=== PATIENT | female | born 1955 | race Caucasian/White ===

== ENCOUNTER 2024-02-09 23:36 | Inpatient (IN) | payer OTHER, SELFPAY ==
[2024-02-09 19:34] VITALS: BP 167/81
[2024-02-09 20:08] LABS: % Basophils 0.2 % (0-2); % Eosinophils 2.8 % (0-6); % Immature Granulocytes 0.7 % (0-0.5); % Lymphocytes 4.3 % (20.5-51.1); % Monocytes 5.4 % (1.7-9.3); % Neutrophils 86.6 % (42.2-75.2); Absolute Eosinophils 0.5 10^3/uL (0-0.7); Absolute Immature Granulocytes 0.1 10^3/uL (0-0.05); Absolute Lymphocytes 0.8 10^3/uL (1.2-3.4); Absolute Neutrophils 15.6 10^3/uL (1.4-6.5); Hematocrit 32.9 % (37.0-47.0); Hemoglobin 10.9 g/dL (12.0-16.0); Mean Corp Hgb Conc. 33.1 g/dL (33.0-37.0); Mean Corpuscular Volume 81.6 fL (81.0-99.0); Mean Platelet Volume 8.9 fL (7.4-10.4); Nucleated Red Blood Cells % 0 %; Platelet Count 261 10^3/uL (130-400); Red Blood Cell Count 4.03 10^6/uL (4.20-5.40); Red Cell Dist. Width 14.8 % (11.5-14.5); White Blood Cell Count 18.1 10^3/uL (4.8-10.8)
[2024-02-09 20:09] LABS: Urine Albumin Trace (Neg - Trace); Urine Bilirubin Negative (Negative); Urine Character Clear (Clear); Urine Color Yellow; Urine Glucose Negative (Negative); Urine Ketone Negative (Negative); Urine Leukocyte 2+ (Negative); Urine Nitrite Negative (Negative); Urine Occult Blood Negative (Negative); Urine Urobilinogen Negative (Neg - 1+)
[2024-02-09 20:17] LABS: Urine Bacteria Many (Negative); Urine Red Blood Cell 0-2 /HPF (0-2)
[2024-02-09 20:21] LABS: Lactic Acid 1.3 mmol/L (0.7-2.0)
[2024-02-09 20:27] LABS: ALT (SGPT) 15 U/L (0-35); AST (SGOT) 17 U/L (14-36); Albumin 4.4 g/dl (3.5-5.0); Alkaline Phosphatase 218 U/L (38-126); Blood Urea Nitrogen 32 mg/dl (7-17); COVID-19 Antigen Negative (Negative); Calcium 8.8 mg/dl (8.4-10.2); Carbon Dioxide 25 mmol/L (22-30); Chloride 95 mmol/L (98-107); Glucose 229 mg/dl (70-99); Potassium 4.2 mmol/L (3.5-5.1); Sodium 130 mmol/L (135-145); Total Bilirubin 0.4 mg/dl (0.2-1.3); Total Protein 6.9 g/dl (6.3-8.2); eGFR 41.49
--- NOTE | 2024-02-09 22:04 | ED.GENMED ---
History of Present Illness
General
Chief Complaint: Fever
Source: patient
Exam Limitations: none
Time Seen by Provider: 02/09/24 21:45
History of Present Illness
History of Present Illness:
This is a 68 year old female that comes in with c/o fever and chills. States that around 12 noon she started with nausea and chills. States that her temp was 102. States that she was also sick in [place] about a month ago and they were worried about
sepsis. States that her has dementia and she cares for him. States that she is nauseated. States that she is taking Mounjaro and was due to take her Shot today but held off as this also makes her nauseated. States that she has been
constipated form this. Denies any chest pain, SOB, abd pain, vomiting, diarrhea, headache, dizziness, urinary burning.
Past History
Past History
ED Past Medical History: Asthma (with allergies), HTN, NIDDM and Other (UTI, Splenic aneurysm that they just watch. )
ED Past Surgical History: Gynecological (Total Hysterectomy) and Tonsilectomy (and adenoids)
Social History
Tobacco: Non-smoker
Alcohol: None
Personal:
Living: with family
Review of Systems
Review of Systems
All Other Systems: ROS reviewed and negative except as documented in HPI and ROS
Constitutional: Reports fever and chills
EENT: Reports no symptoms
Respiratory: Reports no symptoms; Denies cough or trouble breathing
Cardiac: Reports no symptoms; Denies chest pain
ABD/GI: Reports nausea; Denies abdominal pain, vomiting or diarrhea
: Reports no symptoms; Denies dysuria, frequency or urgency
Musculoskeletal: Reports no symptoms
Skin: Reports no symptoms
Neurological: Reports no symptoms; Denies dizzy or headache
Psychiatric: Reports no symptoms
Phy Exam
General Physical Exam
General Presentation: no apparent distress
General age: appears stated age
General Skin: warm and dry
General Habitus: normal
General Mental: alert
General Hydration: appears well hydrated
ENT Exam
ENT Exam: TM's normal, pharynx normal and neck supple
Eye Exam
Eye Exam: EOMI
Cardiovascular Exam
Cardiovascular Exam: regular rate/rhythm, no edema, no murmur and normal peripheral pulses
Pulmonary Exam
Pulmonary Exam: lungs clear, no respiratory distress, no rales, chest non tender, no crackles, no rhonchi, no wheezing and no cough
Gastrointestinal Exam
Gastrointestinal Exam: normal bowel sounds, non tender, soft, no organomegaly, no pulsatile mass and non distended
Musculoskeletal Exam
Musculoskeletal Exam: full ROM and no edema
Skin Exam
Skin Exam: normal color, warm/dry, no rash and no petechia
Psychiatric Exam
Psychiatric Exam: normal mood/affect
Course
Orders/Labs/Results
Orders:
Orders
02/09/24 19:38
Electrocardiogram (*1) Urgent
Reason for Study: Other
Other Reason for Exam: Possible Sepsis
Cardiac Monitoring- Treatment ONCE
EKG- Treatment ONCE
IV Insert/Care/Rem.- Treatment PRN
CR Chest - 2 Views Urgent
Comment:
Reason For Exam: suspected infection
O2 Therapy [RESP] Urgent
Titrate/Wean O2 to maintain O2 sat greater than (%): 93
Special Instructions: TO MAINTAIN CONTINUOUS O2 SATS > OR = 93%
Pulse Ox/cont/shift [RESP] Urgent
Quantity: 1
Special Instructions: CONTINUOUS
02/09/24 19:57
COVID-19 Antigen Urgent
Source: Nasal Swab
Complete Blood Count/With Diff Urgent
Comprehensive Metabolic Panel Urgent
Lactic Acid Q4H
Comment: ON ICE, CANCEL 2ND ORDER IF FIRST LACTIC ACID LEVEL <2
Urinalysis Reflex To Culture Urgent
Date Specimen was Collected: 02/09/24
Time Specimen was Collected: 19:38
Urine Microscopic Reflex Cult Urgent
Blood Culture Q30M
MARIA GUADALUPE Source: Blood/Venous
Specimen Description:
Comment: FROM 2 SEPARATE SITES
Urine Culture Urgent
MARIA GUADALUPE Source: U
Specimen Description:
Date Specimen was Collected: 02/09/24
Time Specimen was Collected: 19:38
02/09/24 20:15
Blood Culture Q30M
MARIA GUADALUPE Source: Blood/Venous
Specimen Description:
Comment: FROM 2 SEPARATE SITES
02/09/24 21:47
Fosfomycin [Monurol] 3 gm PO ONCE ONE
02/09/24 21:56
0.9% Sodium Chloride 1000 ml [Nss] 1,000 ml IV BOLUS
Acetaminophen [Tylenol] 1,000 mg PO NOW STA
02/09/24 22:05
Ondansetron Injectable [Zofran] 4 mg IV NOW STA
02/09/24 22:40
Zosyn 3.375 grams IVPB NOW Piperacillin/Tazo 3.375 Gram [Zosyn] 3.375 gram in 50 ml IV NOW
02/09/24 23:45
Lactic Acid Q4H
Comment: ON ICE, CANCEL 2ND ORDER IF FIRST LACTIC ACID LEVEL <2
Abnormal Lab Results
02/09/24
19:57
WBC 18.1 H 10^3/uL
(4.8-10.8)
RBC 4.03 L 10^6/uL
(4.20-5.40)
Hgb 10.9 L g/dL
(12.0-16.0)
Hct 32.9 L %
(37.0-47.0)
RDW 14.8 H %
(11.5-14.5)
Abs Immat Gran (auto) 0.1 H 10^3/uL
(0-0.05)
Absolute Neuts (auto) 15.6 H 10^3/uL
(1.4-6.5)
Absolute Lymphs (auto) 0.8 L 10^3/uL
(1.2-3.4)
Absolute Monos (auto) 1.0 H 10^3/uL
(0.1-0.6)
Immature Gran % 0.7 H %
(0-0.5)
Neutrophils % 86.6 H %
(42.2-75.2)
Lymphocytes % 4.3 L %
(20.5-51.1)
Sodium 130 L mmol/L
(135-145)
Chloride 95 L mmol/L
(98-107)
BUN 32 H mg/dl
(7-17)
Creatinine 1.4 H mg/dL
(0.6-1.0)
Glucose 229 H mg/dl
(70-99)
Alkaline Phosphatase 218 H U/L
(38-126)
Leukocyte Esterase Rfl 2+ A
(Negative)
Urine WBC (Reflex) 11-15 A /HPF
(0-5)
Urine Bacteria (Reflex) Many A
(Negative)
02/09/24 19:57
02/09/24 19:57
Leukocytosis. H/H low. Sodium slightly low. Chloride low. Dehydration. acute renal insufficiency, Hyperglycemia, Alk phos elevation. Urine positive for infection. COVID negative, Lactic acid 1.3
Vital Signs
Initial and Last Documented VS:
Initial Vital Signs
Temp Pulse Resp BP Pulse Ox
100.7 F H 114 22 167/81 95
02/09/24 19:34 02/09/24 19:34 02/09/24 19:34 02/09/24 19:34 02/09/24 19:34
Last Documented Vital Signs
Temp Pulse Resp BP Pulse Ox
101.3 F H 114 22 136/56 91
02/09/24 22:35 02/09/24 19:34 02/09/24 19:34 02/09/24 22:32 02/09/24 22:32
MDM/Problems Addressed
Differential Diagnosis Includes:
UTI, COVID, PNA
MDM/Problems Addressed:
This is a 68 year old female that comes in with c/o fever and chills. State that this started today around 12 noon. States that she is very nauseated.
Will get labs. give IV fluids, medicate for nausea.
Back into see patient. Explained that with her WBC count, her being diabetic and her renal insufficiency it would be better if patient as admitted for her UTi. Patient is now in agreement. Hospitalist notified.
Chronic conditions affecting care:
History of UTI
Chronic conditions affecting care: DM
Acute Exacerbation and/or Progression of Chronic Illness:
UTI
*Radiology
Radiology exam reviewed: radiology read reviewed (Chest- No acute cardiopulmonary process)
*Pulse Oximetry
Patient hypoxic: no
*EKG
Interpreted by ED Provider?: NA
Rate: EKG- N/A
*Venipuncturist Interpretation
Rate: Venipuncturist- N/A
*Critical Care Note
Total Time (30-74mins, 75-104mins- exclusive of procedures): Not Applicable
ED Attending Note
-
Portions of this chart may have been created with voice recognition software.� Occasional wrong word or��sound alike� substitutions may have occurred due to the inherent limitations of voice recognition software.
Discharge Plan
Departure
Patient Disposition: Admit
Date of Disposition: 02/09/24
Time of Disposition: 22:43
Admit to: Med/Surg
Presentation/result/management discussed w/ accepting MD/DO: Hospitalist
Patient with high blood pressure during this ER visit?: Yes
Condition: Good
Covid-19: Negative COVID-19
Discharge Problem:
Fever and chills, Acute UTI (urinary tract infection)
Referrals:
Fly Leung PA-C [Family Provider] -
Interventions
Interventions:
ED- Neurological Assessment Last Done: 02/09/24 22:35
Discharge Date and Time
Print Language: KOREAN
[2024-02-09] MEDS: NSS 1000 IV (22:28)
[2024-02-09] MEDS: TYLENOL 1000 MG PO (22:29)
[2024-02-09] MEDS: ZOFRAN 4 MG IV (22:30)
[2024-02-09 22:32] VITALS: BP 136/56
[2024-02-09 23:00] VITALS: BP 139/58
--- NOTE | 2024-02-09 23:23 | HPS.HSE ---
Family Physician
-
Family Physician: Fly Leung
Chief Complaint
-
fever
History of Present Illness
68-year-old female past medical history of kidney stone 15 years ago, asthma, hypertension, diabetes, stable splenic artery aneurysm, presenting with fevers and chills and nausea starting today. She denies any chest pain, shortness of breath,
abdominal pain, vomiting, diarrhea, headache, dizziness or urinary symptoms, blood in the urine.
She has been having constipation recently for which she has been taking MiraLAX but has been having daily small bowel movements.
She denies smoking alcohol use.
Medical History
Past Medical History
Past Medical History: Reports Other ( kidney stone 15 years ago, asthma, hypertension, diabetes, stable splenic artery aneurysm)
Past Surgical History: Reports None
Social History
Tobacco: Non-smoker
Alcohol: None
Drug: None
Family History
Family History: Not pertinent
Allergies / Home Medications
Allergies reflects when Allergies were last updated in [employer].
Home Medications with original date entered in [employer]
Allergy/Medication List:
Allergies
Allergy/AdvReac Type Severity Reaction Status Date / Time
cefuroxime [From Ceftin] Allergy blisters Verified 02/09/24 19:34
Home Medications
albuterol sulfate 90 mcg/actuation aerosol inhaler 1 puff inhalation R Q4HPRN PRN sob/wheezing 02/09/24
ascorbic acid (vitamin C) 500 mg tablet (Vitamin C) 500 mg PO BID 02/09/24
atorvastatin 10 mg tablet 10 mg PO QPM 02/09/24
cetirizine 10 mg tablet (Zyrtec) 10 mg PO QPM 02/09/24
cranberry fruit concentrate 250 mg chewable tablet (Azo Cranberry) 250 mg PO DAILY 02/09/24
diltiazem HCl 120 mg capsule,extended release 24 hr 120 mg PO QPM 02/09/24
diltiazem HCl 120 mg capsule,extended release 24 hr 240 mg PO DAILY 02/09/24
glipizide 10 mg tablet 10 mg PO BID 02/09/24
hydrochlorothiazide 25 mg tablet 25 mg PO DAILY 02/09/24
insulin glargine 100 unit/mL (3 mL) subcutaneous pen (Lantus Solostar U-100 Insulin) 60 unit SC HS 02/09/24
lisinopril 40 mg tablet 40 mg PO DAILY 02/09/24
omeprazole 40 mg capsule,delayed release 40 mg PO QPM 02/09/24
sertraline 50 mg tablet 50 mg PO QPM 02/09/24
tirzepatide 5 mg/0.5 mL subcutaneous pen injector (Mounjaro) 5 mg SC 02/09/24
Review of Systems
-
History Source: Patient
A 12 point ROS was completed and negative except as noted: Yes
Constitutional: Reports See HPI
EENT: Reports No Symptoms
Respiratory: Reports No Symptoms
Cardiac: Reports No Symptoms
Abdomen/GI: Reports See HPI
: Reports No Symptoms
Musculoskeletal: Reports No Symptoms
Skin: Reports No Symptoms
Neurological: Reports No Symptoms
Endocrine: Reports No Symptoms
Hematologic/Lymphatic: Reports No Symptoms
Psych: Reports No Symptoms
Physical Exam
Vital Signs
Vital Signs
Temp Pulse Resp BP Pulse Ox
101.3 F H 114 22 136/56 91
02/09/24 22:35 02/09/24 19:34 02/09/24 19:34 02/09/24 22:32 02/09/24 22:32
Physical Exam
General: Well Developed, Well Nourished and No Apparent Distress
HEENT: NormoCephalic, Moist mucous membranes and Atraumatic
Respiratory: Clear
Cardiac: S1/S2 and Regular Rhythm; No Murmur or Rub
GI: Soft, Non Tender, Non Distended and Normal Bowel Sounds; No Organomegaly
Rectal: Deferred by Provider
Musculoskeletal: No Clubbing, No Cyanosis and No Edema
Skin: No Rash
Neuro: Nonfocal/grossly intact
Laboratory Results
-
02/09/24 19:57
02/09/24 19:57
Laboratory Results
Lactic Acid 1.3 mmol/L (0.7-2.0) 02/09/24 19:57
Total Bilirubin 0.4 mg/dl (0.2-1.3) 02/09/24 19:57
AST 17 U/L (14-36) 02/09/24 19:57
ALT 15 U/L (0-35) 02/09/24 19:57
Alkaline Phosphatase 218 U/L (38-126) H 02/09/24 19:57
Data Reviewed
-
Lab Data: Labs Reviewed by me
Old Records: Reviewed
Impression/Plan
-
IMPRESSION:
PLAN:
# Sepsis (fever, leukocytosis, tachycardia) secondary to UTI
-No abdominal pain or flank pain to suggest obstructive stone
-Urine, blood cultures
-Levaquin given cephalosporin allergy
-Chest x-ray negative
# Acute kidney injury
-IV fluids
-Hold lisinopril, hydrochlorothiazide
Asthma
-Continue inhalers
Essential hypertension
-Hold hydrochlorothiazide
-Continue diltiazem
Type 2 diabetes
-Hold glipizide
-Reduce Lantus from 60 to 30 units
-Insulin sliding scale
Splenic artery aneurysm
Anxiety/depression
-Continue sertraline
Full code
DVT prophylaxis�heparin
Regular diet
[2024-02-10] VITALS: BP 103/50
[2024-02-10] MEDS: ZOSYN 50 IV (00:06)
[2024-02-10 01:00] VITALS: BP 114/51
[2024-02-10 01:45] VITALS: BP 134/104
[2024-02-10] MEDS: NSS 1000 IV ×2 (01:57→12:42)
[2024-02-10 02:09] VITALS: BMI 33.8
[2024-02-10] MEDS: LEVAQUIN 100 IV (03:08)
[2024-02-10 07:03] LABS: % Basophils 0.2 % (0-2); % Eosinophils 0.4 % (0-6); % Lymphocytes 3.6 % (20.5-51.1); % Neutrophils 90.8 % (42.2-75.2); Absolute Eosinophils 0.1 10^3/uL (0-0.7); Absolute Immature Granulocytes 0.2 10^3/uL (0-0.05); Absolute Lymphocytes 0.6 10^3/uL (1.2-3.4); Absolute Monocytes 0.7 10^3/uL (0.1-0.6); Absolute Neutrophils 15.5 10^3/uL (1.4-6.5); Hematocrit 31.8 % (37.0-47.0); Hemoglobin 10.6 g/dL (12.0-16.0); Mean Corp Hgb Conc. 33.3 g/dL (33.0-37.0); Mean Corpuscular Hgb 27.3 pg (27.0-31.0); Mean Platelet Volume 9.2 fL (7.4-10.4); Nucleated Red Blood Cells % 0 %; Platelet Count 225 10^3/uL (130-400); Red Blood Cell Count 3.88 10^6/uL (4.20-5.40); White Blood Cell Count 17.1 10^3/uL (4.8-10.8)
[2024-02-10 07:32] LABS: ALT (SGPT) 16 U/L (0-35); AST (SGOT) 17 U/L (14-36); Albumin 3.9 g/dl (3.5-5.0); Alkaline Phosphatase 149 U/L (38-126); Blood Urea Nitrogen 27 mg/dl (7-17); Calcium 8.3 mg/dl (8.4-10.2); Carbon Dioxide 26 mmol/L (22-30); Chloride 98 mmol/L (98-107); Estimated Creatinine Clearance 49 ml/min; Glucose 158 mg/dl (70-99); Potassium 4.3 mmol/L (3.5-5.1); Sodium 132 mmol/L (135-145); Total Bilirubin 0.6 mg/dl (0.2-1.3); Total Protein 6.5 g/dl (6.3-8.2); eGFR 41.49
[2024-02-10 07:41] LABS: Glucose - Point of Care 189 mg/dl (70-99)
[2024-02-10 07:46] VITALS: BP 130/67
[2024-02-10 09:09] LABS: Hepatitis C Antibody Negative (Negative)
[2024-02-10] MEDS: ROCEPHIN 1000 MG IV (09:31)
[2024-02-10] MEDS: STERILE WATER FOR INJECTION 10 ML IV (09:31)
[2024-02-10] MEDS: TYLENOL 1000 MG PO ×2 (09:31→16:47)
[2024-02-10] MEDS: CARDIZEM CD 240 MG PO (09:31)
[2024-02-10] MEDS: VITAMIN C 500 MG PO ×2 (09:32→21:09)
[2024-02-10] MEDS: NOVOLOG FLEXPEN-LOW RESISTANCE 1 UNITS SC ×3 (09:32→17:35)
[2024-02-10] MEDS: HEPARIN 5000 UNITS SC ×2 (09:32→21:09)
--- NOTE | 2024-02-10 10:06 | W.PN.HOSP.TC ---
Addendum entered and electronically signed by Blanca Quevedo MD 02/10/24 11:43:
Addendum
US result showed hydronephrosis both side
Will do stat bladder scan and possible need for Bustamante
D/w Urologist library circulation assistant, Dr Blair, he recommended CT study, will do stat study
Will follow
End
Original Note:
Today's Communication/Plan
-
Stat Renal US
PRN Tylenol
Change to Rocephin IV
IVF
Repeat blood culture
IV Vancomycin
Assessment / Plan
Assessment / Plan
Physical Exam
General: Well Developed, Well Nourished and No Apparent Distress
HEENT: Normocephalic, Moist mucous membranes and Atraumatic
Respiratory: Clear
Cardiac: S1/S2 and Regular Rhythm; No Murmur or Rub
GI: Soft, Non Tender, Non Distended no flank tenderness on exam
Musculoskeletal: No Clubbing, No Cyanosis and No Edema
Skin: No Rash
Neuro: Nonfocal/grossly intact
Psych: No agitation
# Sepsis (fever, leukocytosis, tachycardia) secondary to UTI
-No abdominal pain or flank pain to suggest obstructive stone
- Will do stat renal US to rule out hydronephrosis
Change IV Abx to IV Rocephin
- f/w culture
- No cephalosporin allergy, she takes Keflex with no issues.
-Chest x-ray negative
# One bottle positive blood culture of gram positive cocci, possible contamination
will repeat blood culture
Add IV vancomycin for now
# Acute kidney injury
-IV fluids
-Hold lisinopril, hydrochlorothiazide
# Hyponatremia
Asthma
-Continue inhalers
Essential hypertension
-Hold hydrochlorothiazide
-Continue diltiazem
Type 2 diabetes
-Hold glipizide
-Reduce Lantus from 60 to 30 units
-Insulin sliding scale
Splenic artery aneurysm
Anxiety/depression
-Continue sertraline
Full code
DVT prophylaxis�heparin
Regular diet.
Total time spent to see the patient on the floor, examine the patient, review data and lab results, discuss treatment plan with patient, nursing staff around 59 minutes
Anticipated Discharge: > 48 hours
Subjective/Interval History
-
Date of Service: February 10, 2024
Has fever
No abd pain
Objective Data
-
Labs:
Laboratory Results
02/10/24
06:23
WBC 17.1 H
Hgb 10.6 L
Hct 31.8 L
Plt Count 225
Sodium 132 L
Potassium 4.3
Chloride 98
Carbon Dioxide 26
BUN 27 H
Creatinine 1.4 H
Glucose 158 H
Calcium 8.3 L
Total Bilirubin 0.6
AST 17
ALT 16
Alkaline Phosphatase 149 H
Vital Signs:
Vital Signs
Temp Pulse Resp BP Pulse Ox
102.8 F H 101 16 130/67 95
02/10/24 07:46 02/10/24 09:31 02/10/24 07:46 02/10/24 09:31 02/10/24 07:46
I&O
02/09/24 02/10/24 02/11/24
06:59 06:59 06:59
Intake Total 480 / 480
Balance 480 / 480
[2024-02-10 10:54] LABS: Glycohemoglobin (HgbA1c) 7.4 % (4.0-5.6)
[2024-02-10 12:38] LABS: Glucose - Point of Care 183 mg/dl (70-99)
[2024-02-10] MEDS: VANCOCIN 300 MG IV (12:41)
[2024-02-10] MEDS: VANCOCIN 300 ML IV (12:41)
--- NOTE | 2024-02-10 12:43 | PHA.VAN.IN ---
Assessment
- Assessment
Renal Function: Appears elevated from baseline
Maximum Temperature: 102.8 - 02/10/24 0746
Concomitant Antimicrobials: ceftriaxone
AUC Dosing Plan
- Empiric Dosing
Initial / Loading Dose: 1500 mg x 1 dose
Maintenance Regimen: dose by random level - PEÑA
Plan
- Plan
Monitoring: random level AM 02/11/24
Pharmacokinetics Vancomycin I
- -
Patient Age: 68
Patient Sex: Female
Vancomycin Day #: 1
Indication: Bacteremia
Requesting Provider: Emy
Height / Weight:
Height 5 ft 8 in
Actual Weight 100.698 kg
Pertinent Past Medical History: BMI ~34
- Vital Signs / Lab Results
Temp Pulse Resp BP Pulse Ox
98.4 F 101 16 130/67 95
02/10/24 11:16 02/10/24 09:31 02/10/24 07:46 02/10/24 09:31 02/10/24 07:46
Lab Results - Hematology
02/09/24 02/10/24
19:57 06:23
WBC 18.1 H 17.1 H
Lab Results - Chemistry
02/09/24 02/10/24
19:57 06:23
BUN 32 H 27 H
Creatinine 1.4 H 1.4 H
Estimated Creat Clear 49
Albumin 4.4 3.9
02/09/24 02/09/24
19:57 23:45
Lactic Acid 1.3 Cancelled
Lab Results - Urine
02/09/24
19:57
Urine Nitrite (Reflex) Negative
Leukocyte Esterase Rfl 2+ A
Urine WBC (Reflex) 11-15 A
Ur Squamous Epith Cells 11-15
Urine Bacteria (Reflex) Many A
Microbiology Results
02/09/24 19:57 Urine Culture - Final
Urine
02/09/24 19:57 Blood Culture - Preliminary
Blood/Venous Positive culture in progress
Gram Stain - Final
--- NOTE | 2024-02-10 13:57 | CM ---
Reviewed chart, met with patient to obtain information for assessment. Patient's daughter was at bedside. Patient was out of room for a procedure. Patient's daughter stated that patient lives with her spouse who has Alzheimer's. She takes care of
him and right now while she is in acute care, her son and daughter are taking turns supervising him. 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 Will email resources to [email or web address].
Patient's daughter described patient as independent with her ADLs, personal care, dressing and bathing. She does all of the household cook, cooking, cleaning and laundry. She drives and can get herself to her appointments and do all the shopping.
Patient has a Glucometer but no other DME.
She has not had VN services in the past.
She has not been to a SNF.
Patient has a prescription plan and uses, [facility] in [place] for all of her medication.
Her PCP is Fly JAMES.
Patient stated that she feels that she is at her baseline functionally and she is anxious to return home. She feels that she won't have any needs at time of discharge.
Plan: Case management will continue to follow and assist with discharge planning. Home when stable.
[2024-02-10 15:00] VITALS: BP 134/72
[2024-02-10] MEDS: DULCOLAX 10 MG PO (16:48)
[2024-02-10] MEDS: Pyridium 200 MG PO ×2 (16:48→23:13)
[2024-02-10] MEDS: LIPITOR 10 MG PO (17:20)
[2024-02-10] MEDS: ZYRTEC 10 MG PO (17:20)
[2024-02-10] MEDS: PROTONIX 40 MG PO (17:20)
[2024-02-10] MEDS: ZOLOFT 50 MG PO (17:20)
[2024-02-10] MEDS: CARDIZEM CD 120 MG PO (17:21)
[2024-02-10 17:37] LABS: Glucose - Point of Care 160 mg/dl (70-99)
--- NOTE | 2024-02-10 17:58 | W.PN.URO.CBU ---
Today's Communication / Plan
-
await am labs keep folet
Assessment / Plan
-
probable left pyelo no hydro p[ossible blood cx pos pssib;e contaminant agree with iv ans abd avf keep river for now but willremove prior to d/c
Diagnosis
-
Date of Service: February 10, 2024
-
Patient Diagnosis:sp left pyelo hods bladder to 500cc no stones no hydro byr d=creat 0.8 to 1.4
Post Op Day:
Subjective
-
left flank pain no colic
Objective
-
Vital Signs
Temp Pulse Resp BP Pulse Ox
98.6 F 88 16 134/72 95
02/10/24 15:00 02/10/24 17:21 02/10/24 15:00 02/10/24 17:21 02/10/24 15:00
Intake and Output
02/09/24 02/10/24 02/11/24
06:59 06:59 06:59
Intake Total 480 / 480 1620 / 1620
Output Total 1250 / 1250
Balance 480 / 480 370 / 370
Intake:
Oral fluids 480 / 480 1620 / 1620
Output:
Urine, Voided 1250 / 1250
Laboratory Results
02/10/24 06:23
02/10/24 06:23
Review of Systems
-
Constitutional: Fever
: Flank Pain
Physical Exam
-
General - well developed, well nourished, no acute distress
Chest - clear bilaterally
Abdomen - soft, non-tender, positive bowel sounds, no CVAT, no incisional pain or distention
Genitalia - normal
Rectal - normal
Skin - warm & dry with no rash
Neuro - AOx3, no motor deficits
Extremities - no clubbing, no cyanosis, no edema
Incision - clean, dry
Dressing - clean, dry, intact
Care Review
Data Reviewed
Discussed with: Hospitalist and Nursing
CT Scan: Image Pers Reviewed
[2024-02-10] MEDS: FLOMAX 0.400000000000000022 MG PO (21:09)
[2024-02-10] MEDS: LANTUS 0.299999999999999989 UNITS SC (21:11)
[2024-02-10 21:13] LABS: Glucose - Point of Care 185 mg/dl (70-99)
[2024-02-10 23:00] VITALS: BP 101/68
[2024-02-11] MEDS: NSS 1000 IV ×2 (04:18→17:21)
[2024-02-11 07:00] VITALS: BP 138/66
[2024-02-11 07:14] LABS: Vancomycin Random 7.4 ug/ml
[2024-02-11 07:35] LABS: Glucose - Point of Care 167 mg/dl (70-99)
[2024-02-11] MEDS: STERILE WATER FOR INJECTION 10 ML IV (07:57)
[2024-02-11] MEDS: HEPARIN 5000 UNITS SC ×2 (07:57→19:47)
[2024-02-11] MEDS: ROCEPHIN 1000 MG IV (07:57)
[2024-02-11] MEDS: NOVOLOG FLEXPEN-LOW RESISTANCE 1 UNITS SC ×2 (08:01→17:22)
[2024-02-11] MEDS: VITAMIN C 500 MG PO ×2 (08:03→19:47)
[2024-02-11] MEDS: CARDIZEM CD 240 MG PO (08:05)
[2024-02-11 09:42] LABS: Hematocrit 28.4 % (37.0-47.0); Hemoglobin 9.5 g/dL (12.0-16.0); Mean Corp Hgb Conc. 33.5 g/dL (33.0-37.0); Mean Corpuscular Volume 80.7 fL (81.0-99.0); Mean Platelet Volume 9.3 fL (7.4-10.4); Platelet Count 227 10^3/uL (130-400); Red Blood Cell Count 3.52 10^6/uL (4.20-5.40); Red Cell Dist. Width 15.1 % (11.5-14.5)
[2024-02-11 09:54] LABS: Blood Urea Nitrogen 15 mg/dl (7-17); Calcium 8.4 mg/dl (8.4-10.2); Carbon Dioxide 23 mmol/L (22-30); Chloride 102 mmol/L (98-107); Glucose 150 mg/dl (70-99); Sodium 134 mmol/L (135-145)
[2024-02-11 10:03] LABS: Estimated Creatinine Clearance 76 ml/min; eGFR > 60.00
--- NOTE | 2024-02-11 10:17 | PHA.VAN.FU ---
Vancomycin Assessment / Plan
- Assessment
Renal Function: SCR Decreasing (1.4-> 0.9)
WBC's are: Trending Down (WNL)
In the past 24 hrs, patient has been: Afebrile
Concomitant Antimicrobials: ceftriaxone
- Assessment - Therapeutic Drug Monitoring
Random Level: 7.4 - ~ 18 hours after initial 1500 mg loading dose
- Dosing Plan
Adjust Regimen to: vancomycin 1000 mg q12h - first dose now
- Monitoring Plan
No level(s) ordered at this time: consider levels after pt nears steady state
- Follow Up
Pharmacy will continue to follow.
Vancomycin Follow UP
- -
Patient Age: 68
Patient Sex: Female
Vancomycin Day #: 2
Indication: Bacteremia
Requesting Provider: Emy
Height / Weight:
Height 5 ft 8 in
Actual Weight 100.698 kg
Pertinent Past Medical History: BMI ~34
- Vital Signs / Lab Results
Temp Pulse Resp BP Pulse Ox
100.2 F 93 16 138/66 93
02/11/24 07:00 02/11/24 08:05 02/11/24 07:00 02/11/24 08:05 02/11/24 07:00
Lab Results - Hematology
02/09/24 02/10/24 02/11/24
19:57 06:23 08:26
WBC 18.1 H 17.1 H 9.0
Lab Results - Chemistry
02/09/24 02/10/24 02/11/24
19:57 06:23 08:26
BUN 32 H 27 H 15
Creatinine 1.4 H 1.4 H 0.9
Estimated Creat Clear 49 76
Albumin 4.4 3.9
02/09/24 02/09/24
19:57 23:45
Lactic Acid 1.3 Cancelled
Microbiology Results
02/10/24 06:23 Blood Culture - Preliminary
Blood/Venous No Growth in 24 hours- Final report to follow
02/09/24 19:57 Urine Culture - Final
Urine
02/09/24 19:57 Blood Culture - Preliminary
Blood/Venous Positive culture in progress
Gram Stain - Final
Therapeutic Drug Monitoring
Random Vancomycin 7.4 ug/ml 02/11/24 05:55
--- NOTE | 2024-02-11 10:30 | W.PN.HOSP.TC ---
Today's Communication/Plan
-
.
Assessment / Plan
Assessment / Plan
Physical Exam
General: Well Developed, Well Nourished and No Apparent Distress
HEENT: Normocephalic, Moist mucous membranes and Atraumatic
Respiratory: Clear
Cardiac: S1/S2 and Regular Rhythm; No Murmur or Rub
GI: Soft, Non Tender, Non Distended no flank tenderness on exam
Musculoskeletal: No Clubbing, No Cyanosis and No Edema
: Bustamante, no hematuria.
Skin: No Rash
Neuro: Nonfocal/grossly intact
Psych: No agitation
# Sepsis (fever, leukocytosis, tachycardia) secondary to UTI
-No abdominal pain or flank pain to suggest obstructive stone
- US and CT showed mild hydronephrosis both sides but no obstructive stone.
She was found to have urinary retention. Placed Bustamante and started on Flomax. Will do Voiding trial. Had dysuria, given Pyridium.
Changed IV Abx to IV Rocephin
- f/w culture
- No cephalosporin allergy, she takes Keflex with no issues.
-Chest x-ray negative
# One bottle positive blood culture of gram positive cocci, possible contamination
Repeat blood culture 02/09
Added IV vancomycin empirically.
# Acute kidney injury
- Resolved, post IV fluids
-Held lisinopril, hydrochlorothiazide, can resume
# Hyponatremia
Asthma
No wheezes.
-Continue inhalers
Essential hypertension
-Held hydrochlorothiazide and Lisinopril
-Continue diltiazem
Type 2 diabetes
-Held glipizide
-Reduce Lantus from 60 to 30 units
-Insulin sliding scale
Splenic artery aneurysm
Anxiety/depression
-Continue sertraline
Full code
DVT prophylaxis�heparin
Regular diet.
Total time spent to see the patient on the floor, examine the patient, review data and lab results, discuss treatment plan with patient, family, nursing staff around 59 minutes
Anticipated Discharge: Within 24 hours
Subjective/Interval History
-
Date of Service: February 11, 2024
She feels better
No chest pain or sob
No flank pain
No dysuria
Objective Data
-
Labs:
Laboratory Results
02/11/24
08:26
WBC 9.0
Hgb 9.5 L
Hct 28.4 L
Plt Count 227
Sodium 134 L
Potassium 4.0
Chloride 102
Carbon Dioxide 23
BUN 15
Creatinine 0.9
Glucose 150 H
Calcium 8.4
Vital Signs:
Vital Signs
Temp Pulse Resp BP Pulse Ox
100.2 F 93 16 138/66 93
02/11/24 07:00 02/11/24 08:05 02/11/24 07:00 02/11/24 08:05 02/11/24 07:00
I&O
02/10/24 02/11/24 02/12/24
06:59 06:59 06:59
Intake Total 480 / 480 2100 / 2100
Output Total 3025 / 3025
Balance 480 / 480 -925 / -925
--- NOTE | 2024-02-11 10:54 | W.PN.URO.CBU ---
Today's Communication / Plan
-
remove river expect no output for hours
Assessment / Plan
-
probable left pyelo no hydro p[ossible blood cx pos pssib;e contaminant agree with iv ans abd avf labs normalized abd follow up blood cxs neg plan t tranfer to po abs ad discharge per hospitalist river to come ot today will seek
follow upoffice 2- 4 weeks
Diagnosis
-
Date of Service: February 11, 2024
-
Patient Diagnosis:
Post Op Day:
Patient Diagnosis:sp left pyelo hods bladder to 500cc no stones no hydro byr d=creat 0.8 to 1.4 NOW CTREAT 0.9 WBC 9K AND FOLOW UP BLOOD CXS NEG C=DX LEFT PEYELONEPHTIS
Post Op Day:
Subjective
-
FEELS BETTER
Objective
-
Vital Signs
Temp Pulse Resp BP Pulse Ox
100.2 F 93 16 138/66 93
02/11/24 07:00 02/11/24 08:05 02/11/24 07:00 02/11/24 08:05 02/11/24 07:00
Intake and Output
02/10/24 02/11/24 02/12/24
06:59 06:59 06:59
Intake Total 480 / 480 2099 / 2099
Output Total 3025 / 3025
Balance 480 / 480 -925 / -925
Intake:
Oral fluids 480 / 480 2099 / 2099
Output:
Urine, River 177 / 1774
Urine, Voided 1250 / 1250
Laboratory Results
02/11/24 08:26
02/11/24 08:26
Review of Systems
-
: No Symptoms
Physical Exam
-
General - well developed, well nourished, no acute distress
Chest - clear bilaterally
Abdomen - soft, non-tender, positive bowel sounds, no CVAT, no incisional pain or distention
Genitalia - normal
Rectal - normal
Skin - warm & dry with no rash
Neuro - AOx3, no motor deficits
Extremities - no clubbing, no cyanosis, no edema
Incision - clean, dry
Dressing - clean, dry, intact
Care Review
Data Reviewed
Discussed with: Nursing
CT Scan: Image Pers Reviewed
[2024-02-11] MEDS: VANCOCIN 200 IV ×2 (11:01→19:46)
[2024-02-11 11:55] LABS: Glucose - Point of Care 240 mg/dl (70-99)
[2024-02-11] MEDS: NOVOLOG FLEXPEN-LOW RESISTANCE 2 UNITS SC (12:48)
[2024-02-11 15:07] VITALS: BP 139/62
[2024-02-11 17:02] LABS: Glucose - Point of Care 195 mg/dl (70-99)
[2024-02-11] MEDS: ZOLOFT 50 MG PO (17:21)
[2024-02-11] MEDS: PROTONIX 40 MG PO (17:21)
[2024-02-11] MEDS: CARDIZEM CD 120 MG PO (17:21)
[2024-02-11] MEDS: ZYRTEC 10 MG PO (17:21)
[2024-02-11] MEDS: LIPITOR 10 MG PO (17:21)
[2024-02-11 21:29] LABS: Glucose - Point of Care 261 mg/dl (70-99)
[2024-02-11] MEDS: FLOMAX 0.400000000000000022 MG PO (21:37)
[2024-02-11] MEDS: LANTUS 0.299999999999999989 UNITS SC (21:37)
[2024-02-11 22:58] VITALS: BP 152/74
[2024-02-11 23:46] LABS: Glucose - Point of Care 225 mg/dl (70-99)
[2024-02-12 04:33] LABS: Glucose - Point of Care 178 mg/dl (70-99)
[2024-02-12] MEDS: VANCOCIN 200 IV (06:16)
[2024-02-12 06:44] LABS: Hematocrit 27.2 % (37.0-47.0); Mean Corp Hgb Conc. 33.1 g/dL (33.0-37.0); Mean Corpuscular Hgb 27.2 pg (27.0-31.0); Mean Corpuscular Volume 82.2 fL (81.0-99.0); Mean Platelet Volume 9.3 fL (7.4-10.4); Platelet Count 222 10^3/uL (130-400); Red Blood Cell Count 3.31 10^6/uL (4.20-5.40); Red Cell Dist. Width 14.7 % (11.5-14.5)
[2024-02-12 07:00] VITALS: BP 139/65
[2024-02-12 07:12] LABS: Blood Urea Nitrogen 14 mg/dl (7-17); Calcium 8.2 mg/dl (8.4-10.2); Carbon Dioxide 22 mmol/L (22-30); Chloride 103 mmol/L (98-107); Estimated Creatinine Clearance 86 ml/min; Glucose 149 mg/dl (70-99); Potassium 3.9 mmol/L (3.5-5.1); eGFR > 60.00
[2024-02-12 07:20] LABS: Sodium 135 mmol/L (135-145)
[2024-02-12] MEDS: CARDIZEM CD 240 MG PO (07:30)
[2024-02-12] MEDS: ROCEPHIN 1000 MG IV (07:31)
[2024-02-12] MEDS: HEPARIN 5000 UNITS SC (07:31)
[2024-02-12] MEDS: VITAMIN C 500 MG PO (07:31)
[2024-02-12] MEDS: STERILE WATER FOR INJECTION 10 ML IV (07:32)
[2024-02-12 07:43] LABS: Glucose - Point of Care 198 mg/dl (70-99)
[2024-02-12] MEDS: NOVOLOG FLEXPEN-LOW RESISTANCE 1 UNITS SC (07:46)
--- NOTE | 2024-02-12 08:04 | W.PN.URO.CBU ---
Today's Communication / Plan
-
d/c when ok by hospitalist
Assessment / Plan
-
probable left pyelo no hydro p[ossible blood cx pos pssib;e contaminant agree with iv ans abd avf labs normalized abd follow up blood cxs neg plan t tranfer to po abs ad discharge per hospitalist river to come ot today will seek
follow upoffice 2- 4 weeks
Diagnosis
-
Date of Service: February 12, 2024
-
Patient Diagnosis:
Post Op Day:
Patient Diagnosis:
Post Op Day:
Patient Diagnosis:sp left pyelo hods bladder to 500cc no stones no hydro byr d=creat 0.8 to 1.4 NOW CTREAT 0.9 WBC 9K AND FOLOW UP BLOOD CXS NEG C=DX LEFT PEYELONEPHTIS
Post Op Day:
Subjective
-
asx no pain fevr voiding
Objective
-
Vital Signs
Temp Pulse Resp BP Pulse Ox
98.3 F 75 17 139/65 95
02/12/24 07:00 02/12/24 07:30 02/12/24 07:00 02/12/24 07:30 02/12/24 07:00
Intake and Output
02/11/24 02/12/24 02/13/24
06:59 06:59 06:59
Intake Total 2099
Output Total 3025 / 3025
Balance -925 / -925 1819
Intake:
Oral fluids 2099 1420 / 1420
IV piggybacks 400 / 400
Output:
Urine, River 1774
Urine, Voided 1250 / 1250
Other:
Number of approximated MODERATE 3
amounts of urine
Number of approximated LARGE 1
amounts of urine
Laboratory Results
02/12/24 05:46
02/12/24 05:46
Review of Systems
-
: No Symptoms
Physical Exam
-
General - well developed, well nourished, no acute distress
Chest - clear bilaterally
Abdomen - soft, non-tender, positive bowel sounds, no CVAT, no incisional pain or distention
Genitalia - normal
Rectal - normal
Skin - warm & dry with no rash
Neuro - AOx3, no motor deficits
Extremities - no clubbing, no cyanosis, no edema
Incision - clean, dry
Dressing - clean, dry, intact
Care Review
Data Reviewed
Discussed with: Hospitalist and Nursing
--- NOTE | 2024-02-12 08:35 | PHA.VAN.FU ---
Vancomycin Assessment / Plan
- Assessment
Renal Function: SCR Decreasing
WBC's are: Trending Down
In the past 24 hrs, patient has been: Afebrile
Concomitant Antimicrobials: ceftriaxone
- Dosing Plan
Continue: vancomycin 1000 mg q12h
predicted AUC 510; Trough 14; half life - 10.3 h
- Monitoring Plan
Peak Level: 02/11 2030 - after 4th dose
Trough Level: 02/12 530
- Follow Up
Pharmacy will continue to follow.
Vancomycin Follow UP
- -
Patient Age: 68
Patient Sex: Female
Vancomycin Day #: 3
Indication: Bacteremia
Requesting Provider: Emy
Height / Weight:
Height 5 ft 8 in
Actual Weight 100.698 kg
Pertinent Past Medical History: BMI ~34
- Vital Signs / Lab Results
Temp Pulse Resp BP Pulse Ox
98.3 F 75 17 139/65 95
02/12/24 07:00 02/12/24 07:30 02/12/24 07:00 02/12/24 07:30 02/12/24 07:00
Lab Results - Hematology
02/09/24 02/10/24 02/11/24
19:57 06:23 08:26
WBC 18.1 H 17.1 H 9.0
02/12/24
05:46
WBC 7.0
Lab Results - Chemistry
02/09/24 02/10/24 02/11/24
19:57 06:23 08:26
BUN 32 H 27 H 15
Creatinine 1.4 H 1.4 H 0.9
Estimated Creat Clear 49 76
Albumin 4.4 3.9
02/12/24
05:46
BUN 14
Creatinine 0.8
Estimated Creat Clear 86
Albumin
02/09/24 02/09/24
19:57 23:45
Lactic Acid 1.3 Cancelled
Microbiology Results
02/10/24 06:23 Blood Culture - Preliminary
Blood/Venous No Growth in 48 hours- Final report to follow
02/09/24 19:57 Blood Culture - Preliminary
Blood/Venous Streptococcus agalactiae
Additional testing on request
Gram Stain - Final
02/10/24 10:40 Blood Culture - Preliminary
Blood/Venous No Growth in 24 hours- Final report to follow
02/09/24 19:57 Urine Culture - Final
Urine
Therapeutic Drug Monitoring
Random Vancomycin 7.4 ug/ml 02/11/24 05:55
--- NOTE | 2024-02-12 10:31 | W.PN.HOSP.TC ---
Today's Communication/Plan
-
dc later this afternoon
Assessment / Plan
Assessment / Plan
Physical Exam
General: Well Developed, Well Nourished and No Apparent Distress
HEENT: Normocephalic, Moist mucous membranes and Atraumatic
Respiratory: Clear
Cardiac: S1/S2 and Regular Rhythm; No Murmur or Rub
GI: Soft, Non Tender, Non Distended no flank tenderness on exam
Musculoskeletal: No Clubbing, No Cyanosis and No Edema
: No Bustamante, no hematuria.
Skin: No Rash
Neuro: Nonfocal/grossly intact
Psych: No agitation
# Sepsis (fever, leukocytosis, tachycardia) secondary to UTI
-No abdominal pain or flank pain to suggest obstructive stone
- US and CT showed mild hydronephrosis both sides but no obstructive stone. CT showed no hydronephrosis.
She was found to have urinary retention. Placed Bustamante and started on Flomax. Will do Voiding trial. Had dysuria, given Pyridium.
Changed IV Abx to IV Rocephin
- d/w urologist Dr Blair, treat with ABx, follow in office.
-Chest x-ray negative
# Bacteremia
One bottle positive blood culture of gram positive cocci streptococcus agalactiae
Repeat blood culture 02/09, no growth
This could be related to urinary source or GI source. Clinically she is back to normal with no urinary symptoms or GI problems. CT showed no acute issues
Added IV vancomycin empirically. d/w ID with such findings,recommend to treat it as infection, will do oral amoxicillin for 7 days course.
# Acute kidney injury
- Resolved, post IV fluids
-Ok to resume home meds.
# Hyponatremia
#Asthma
No wheezes.
-Continue inhalers
#Essential hypertension
-Held hydrochlorothiazide and Lisinopril
-Continue diltiazem
#Type 2 diabetes
-resume glipizide
-Reduce home insulin, she is comfortable managing her blood glucose.
#Splenic artery aneurysm
#Anxiety/depression
- Mood is pleasant and cooperative. No report of suicidal or homicidal thoughts.
-Continue sertraline
Full code
DVT prophylaxis�heparin
Regular diet.
Total discharge time spent to see the patient on the floor, examine the patient, review data and lab results, discuss discharge plan with patient, urologist, family, nursing staff around 69 minutes
Anticipated Discharge: Today
Subjective/Interval History
-
Date of Service: February 12, 2024
She is doing well
no pain,
Objective Data
-
Labs:
Laboratory Results
02/12/24
05:46
WBC 7.0
Hgb 9.0 L
Hct 27.2 L
Plt Count 222
Sodium 135
Potassium 3.9
Chloride 103
Carbon Dioxide 22
BUN 14
Creatinine 0.8
Glucose 149 H
Calcium 8.2 L
Vital Signs:
Vital Signs
Temp Pulse Resp BP Pulse Ox
98.3 F 75 17 139/65 95
02/12/24 07:00 02/12/24 07:30 02/12/24 07:00 02/12/24 07:30 02/12/24 07:00
I&O
02/11/24 02/12/24 02/13/24
06:59 06:59 06:59
Intake Total 2099 / 2099
Output Total 3024 / 302
Balance -925 / -925 1819
[2024-02-12 11:41] LABS: Glucose - Point of Care 213 mg/dl (70-99)
--- NOTE | 2024-02-12 12:09 | W.DCSUMMARY ---
Discharge Summary
Discharge Data
Date of Admission: 02/09/24
Date of Discharge: 02/12/24
-
Pending Results: No
Hospital Course
68 years old female presented with fever and chills. Patient was having nausea which she related to the recent use of medication Mounjaro. Patient did not have abdominal pain. No respiratory symptoms. Patient was noted to have acute urinary
retention. Bustamante catheter was placed. She had ultrasound of the kidney that showed possible hydronephrosis. Scan of the abdomen and pelvis showed no hydronephrosis or hydroureter but 7 mm nonobstructing calculus in the anterior midportion of the
left kidney with 10 cm minimally complex cyst in the midportion and lower pole of the left kidney. Patient was evaluated by urologist. She was started on low-dose Flomax. Bustamante catheter was removed and she passed voiding trial. Blood culture
showed 1 bottle positive for Streptococcus agalactiae of unknown source. Scan of the abdomen and pelvis did not show acute inflammation. Repeat blood culture showed no growth. Urine culture did not show any growth. Chest radiography was
unremarkable. Patient was given empiric antibiotics. Patient was discharged on 7 days course of oral amoxicillin. She tolerated diet well. She remained hemodynamically stable and was discharged in a stable condition.
Discharge Plan
-
Patient Disposition: Home (Routine Discharge)
Discharge Diagnosis/Procedures: Fever
Acute urinary retention
One bottle of blood culture positive for streptococcus agalactiae. Unknown source.
You received intravenous antibiotics. Repeat blood culture is no growth.
You were seen by urologist and recommended OP follow up. You were started on Flomax.
Discuss with infectious disease consultants, recommended to treat the infection with oral antibiotic.
Diet: Diabetic, Carb Controlled
Referrals:
Danny Blair MD [Active] - (call dr blair [phone] for questions but make appt as follow up to [facility] for after february 26 )
Fly Leung PA-C [Family Provider] - in one to two weeks
Prescriptions:
New
tamsulosin 0.4 mg Capsule
0.4 mg PO HS Qty: 30 0RF
amoxicillin 500 mg capsule
500 mg PO Q8H Qty: 21 0RF
Continued
atorvastatin 10 mg tablet
10 mg PO QPM
glipizide 10 mg tablet
10 mg PO BID
omeprazole 40 mg capsule,delayed release(DR/EC)
40 mg PO QPM
diltiazem HCl 120 mg capsule,extended release 24hr
240 mg PO DAILY
hydrochlorothiazide 25 mg tablet
25 mg PO DAILY
albuterol sulfate 90 mcg/actuation HFA aerosol inhaler
1 puff INHALATION R Q4HPRN PRN (Reason: sob/wheezing)
lisinopril 40 mg tablet
40 mg PO DAILY
sertraline 50 mg tablet
50 mg PO QPM
insulin glargine [Lantus Solostar U-100 Insulin] 100 unit/mL (3 mL) insulin pen
60 unit SC HS
Mounjaro 5 mg/0.5 mL pen injector
5 mg SC TH
cetirizine [Zyrtec] 10 mg Tablet
10 mg PO QPM
ascorbic acid (vitamin C) [Vitamin C] 500 mg Tablet
500 mg PO BID
diltiazem HCl 120 mg capsule,extended release 24hr
120 mg PO QPM
Azo Cranberry 250 mg Tablet,Chewable
250 mg PO DAILY
Discharge Orders:
Discharge Patient (As Directed); Ordered 02/12/24
Ordered By: Blanca Quevedo
Discharge Date and Time
Print Language: ZAMBIAN
[2024-02-12] MEDS: NOVOLOG FLEXPEN-LOW RESISTANCE SC (12:31)
== END 2024-02-12 12:37 | disposition home or self-care (01) | DRG 872 ==
LOC: 3 WEST ACU 23:36
PROVIDERS: Emergency Medicine; ADMITTING PHYSICIAN Hospitalist; ATTENDING PHYSICIAN Internal Medicine; EMERGENCY PHYSICIAN Emergency Medicine; FAMILY PHYSICIAN Physician Assistant Medical; OTHER PHYSICIAN Specialist
DX: A41.9 Sepsis, unspecified organism (principal); N17.9 Acute kidney failure, unspecified; E87.1 Hypo-osmolality and hyponatremia; N12 Tubulo-interstitial nephritis, not specified as acute or chronic; I72.8 Aneurysm of other specified arteries; N20.0 Calculus of kidney; J45.909 Unspecified asthma, uncomplicated; I10 Essential (primary) hypertension; E11.9 Type 2 diabetes mellitus without complications; F32.A Depression, unspecified; F41.9 Anxiety disorder, unspecified; R33.9 Retention of urine, unspecified; Z79.84 Long term (current) use of oral hypoglycemic drugs; Z79.899 Other long term (current) drug therapy; Z88.1 Allergy status to other antibiotic agents
CPT/HCPCS: 71046; 74176; 76775; 80048; 80053; 80202; 81003; 81015; 82962; 83036; 83605; 85025; 85027; 86803; 87040; 87077; 87086; 87147; 87205; 87811; 93005; 96374; 99285

== ENCOUNTER → 2024-04-04 14:12 | Outpatient (REF) | payer OTHER, SELFPAY | LOC: HWRAD 14:12 | PROVIDERS: ATTENDING PHYSICIAN Physician Assistant; FAMILY PHYSICIAN Physician Assistant Medical | DX: E04.2 Nontoxic multinodular goiter (principal) | CPT/HCPCS: 76536 ==

== ENCOUNTER 2024-08-17 13:08 | Emergency (ER) | payer OTHER, SELFPAY ==
[2024-08-17 13:29] VITALS: BP 140/71
--- NOTE | 2024-08-17 13:31 | ED.GENMED ---
ED Provider Triage
<Redd Robledo PA-C - Last Filed: 08/17/24 13:33>
-
Patient seen by provider in Triage?: Seen in Triage
69 yo female presents for severe L flank pain beginning this AM. has improved since onset. Hx of kidney stones, not similar symptoms. No lower urinary tract voiding symptoms. No hematuria. No fevers
Looks well. Suspect ureteral stone, check UA, CT. Give toradol pre-emptively
History of Present Illness
<Redd Robledo PA-C - Last Filed: 08/17/24 13:33>
General
Chief Complaint: Flank Pain
Time Seen by Provider: 08/17/24 15:46
<Maynor Christie PA-C - Last Filed: 08/17/24 18:59>
General
Source: patient
History of Present Illness
History of Present Illness:
69-year-old female with past medical history of hypertension and diabetes presenting to the emergency department for evaluation of sudden onset left-sided flank/lower back pain that began a few hours prior to arrival to the emergency department
accompanied with some mild nausea. Patient describes the pain to be intense, nonradiating, similar to labor pain, drastically improved with the Toradol she received while in triage. States pain is fully resolved at this time as well as nausea.
Patient notes that just prior to the pain onset she did have a bowel movement and reports that the bowel movement was completely normal. She denies any melena or hematochezia, hematuria, urinary frequency/urgency/dysuria, fevers, chills, rigors or
any other concerns. Patient does note a history of a cyst to her left kidney as well as intrarenal stones diagnosed on previous imaging.
Past History
<Redd Robledo PA-C - Last Filed: 08/17/24 13:33>
Past History
ED Past Medical History: Asthma (with allergies), HTN, NIDDM and Other (UTI, Splenic aneurysm that they just watch. )
ED Past Surgical History: Gynecological (Total Hysterectomy) and Tonsilectomy (and adenoids)
Social History
Tobacco: Non-smoker
Alcohol: None
Personal:
Living: with family
<Maynor Christie PA-C - Last Filed: 08/17/24 18:59>
Social History
Drug: None
Review of Systems
<Maynor Christie PA-C - Last Filed: 08/17/24 18:59>
Review of Systems
All Other Systems: ROS reviewed and negative except as documented in HPI and ROS
Phy Exam
<Maynor Christie PA-C - Last Filed: 08/17/24 18:59>
Physical Exam
Physical Exam:
GENERAL: Alert , in no apparent distress, small emesis with an emesis bag from earlier however patient notes no longer feeling nauseous
EYE: clear conjunctiva b/l
HEAD: NCAT
ENT: o/p clr, mmm.
CARDIAC: Regular rate and rhythm .
LUNGS: Clear breath sounds bilaterally, no acute respiratory distress, no wheezes/rales/rhonchi
ABDOMEN: Soft, without focal tenderness, no r/g, no cvat
NEUROLOGICAL: Alert and oriented
SKIN: Warm and dry, skin intact.
MUSCULOSKELETAL: well perfused.
PSYCH: Normal and appropriate interaction.
Scores
<Maynor Christie PA-C - Last Filed: 08/17/24 18:59>
Heart Failure Risk
Heart Failure Risk Score: Not Applicable
Heart Score for Chest Pain Patients
STEMI patient?: Not applicable
Withdrawal Assessment of Alcohol
Withdrawal Assessment Completed?: Not applicable
Course
<Redd Robledo PA-C - Last Filed: 08/17/24 13:33>
Orders/Labs/Results
Orders:
Orders
08/17/24 13:29
Ketorolac [Toradol] 30 mg IM NOW STA
08/17/24 13:30
CT Abd/pel Without Iv Or Oral Urgent
Comment:
Reason For Exam: L flank pain
08/17/24 13:54
Urinalysis Reflex To Culture Urgent
Date Specimen was Collected: 08/17/24
Time Specimen was Collected: 13:52
Urine Microscopic Reflex Cult Urgent
08/17/24 17:17
Basic Metabolic Panel Urgent
Complete Blood Count/With Diff Urgent
Abnormal Lab Results
08/17/24 08/17/24
13:54 17:17
MCH 26.8 L pg
(27.0-31.0)
MCHC 31.7 L g/dL
(33.0-37.0)
Abs Immat Gran (auto) 0.1 H 10^3/uL
(0-0.05)
Absolute Neuts (auto) 7.3 H 10^3/uL
(1.4-6.5)
Immature Gran % 0.8 H %
(0-0.5)
Lymphocytes % 15.8 L %
(20.5-51.1)
BUN 33 H mg/dl
(7-17)
Creatinine 1.2 H mg/dL
(0.6-1.0)
Glucose 169 H mg/dl
(70-99)
Ur Occult Blood Reflex 2+ A
(Negative)
Urine RBC 80-90 A /HPF
(0-2)
Urine Bacteria (Reflex) Few A
(Negative)
08/17/24 17:17
08/17/24 17:17
Vital Signs
Initial and Last Documented VS:
Initial Vital Signs
Temp Pulse Resp BP Pulse Ox
98.2 F 71 18 140/71 99
08/17/24 13:29 08/17/24 13:29 08/17/24 13:29 08/17/24 13:29 08/17/24 13:29
Last Documented Vital Signs
Temp Pulse Resp BP Pulse Ox
98.2 F 73 18 166/93 98
08/17/24 13:29 08/17/24 16:20 08/17/24 16:20 08/17/24 16:20 08/17/24 16:20
<Maynor Christie PA-C - Last Filed: 08/17/24 18:59>
Orders/Labs/Results
Orders:
Orders
08/17/24 13:29
Ketorolac [Toradol] 30 mg IM NOW STA
08/17/24 13:30
CT Abd/pel Without Iv Or Oral Urgent
Comment:
Reason For Exam: L flank pain
08/17/24 13:54
Urinalysis Reflex To Culture Urgent
Date Specimen was Collected: 08/17/24
Time Specimen was Collected: 13:52
Urine Microscopic Reflex Cult Urgent
08/17/24 17:17
Basic Metabolic Panel Urgent
Complete Blood Count/With Diff Urgent
Abnormal Lab Results
08/17/24 08/17/24
13:54 17:17
MCH 26.8 L pg
(27.0-31.0)
MCHC 31.7 L g/dL
(33.0-37.0)
Abs Immat Gran (auto) 0.1 H 10^3/uL
(0-0.05)
Absolute Neuts (auto) 7.3 H 10^3/uL
(1.4-6.5)
Immature Gran % 0.8 H %
(0-0.5)
Lymphocytes % 15.8 L %
(20.5-51.1)
BUN 33 H mg/dl
(7-17)
Creatinine 1.2 H mg/dL
(0.6-1.0)
Glucose 169 H mg/dl
(70-99)
Ur Occult Blood Reflex 2+ A
(Negative)
Urine RBC 80-90 A /HPF
(0-2)
Urine Bacteria (Reflex) Few A
(Negative)
08/17/24 17:17
08/17/24 17:17
Vital Signs
Initial and Last Documented VS:
Initial Vital Signs
Temp Pulse Resp BP Pulse Ox
98.2 F 71 18 140/71 99
08/17/24 13:29 08/17/24 13:29 08/17/24 13:29 08/17/24 13:29 08/17/24 13:29
Last Documented Vital Signs
Temp Pulse Resp BP Pulse Ox
98.2 F 73 18 166/93 98
08/17/24 13:29 08/17/24 16:20 08/17/24 16:20 08/17/24 16:20 08/17/24 16:20
<Maynor Christie PA-C - Last Filed: 08/17/24 18:59>
MDM/Problems Addressed
Differential Diagnosis Includes:
Renal/ureteral colic, pyelonephritis/urinary tract infection, musculoskeletal etiology
MDM/Problems Addressed:
69-year-old female presenting to the ER for evaluation of sudden onset left-sided flank pain accompanied with some mild nausea, symptoms drastically improved following Toradol while in triage. Urinalysis was also obtained in triage which shows 2+
blood and 80-90 RBCs per on differential. Given history of known kidney stones combined with the sudden onset nature and microscopic hematuria I do suspect kidney stone/ureterolithiasis to be the most likely diagnosis. Patient does note slight
elevation of her creatinine on last lab work so we will recheck labs and CT imaging. Disposition pending.
Chronic conditions affecting care: DM
<Maynor Christie PA-C - Last Filed: 08/17/24 18:59>
*Radiology
Radiology exam reviewed: radiology read reviewed
*Pulse Oximetry
Patient hypoxic: no
*Critical Care Note
Total Time (30-74mins, 75-104mins- exclusive of procedures): Not Applicable
Data Reviewed
Review of Other/Old Records Reveals: Labs and Records
Source: patient and records
<Maynor Christie PA-C - Last Filed: 08/17/24 18:59>
Patient Management
Escalation/DeEscalation of care consider admission/obs:
Patient has a 5 mm ureteral stone. Other chronic findings noted. Reviewed patient's CT scan with her and provided her with copy of report. Labs show a creatinine of 1.2 which patient has been around in the past. She feels comfortable being
discharged home and will follow-up with her urologist. Prescription for Flomax, Percocet and Zofran sent to pharmacy. Aware of return precautions to the ER.
ED Attending Note
<Redd Robledo PA-C - Last Filed: 08/17/24 13:33>
-
Portions of this chart may have been created with voice recognition software.� Occasional wrong word or��sound alike� substitutions may have occurred due to the inherent limitations of voice recognition software.
Discharge Plan
Departure
Patient Disposition: Home (Routine Discharge)
Date of Disposition: 08/17/24
Time of Disposition: 17:53
Patient with high blood pressure during this ER visit?: Yes
Discharge Problem:
Ureterolithiasis, CKD (chronic kidney disease)
Instructions: Renal Colic (DC)
Prescriptions:
New
tamsulosin [Flomax] 0.4 mg capsule
0.4 mg PO DAILY Qty: 10 0RF
ondansetron 4 mg tablet,disintegrating
4 mg PO TIDPRN PRN (Reason: nausea/vomiting) Qty: 9 0RF
oxycodone-acetaminophen [Percocet] 5-325 mg tablet
1 tab PO Q6HPRN PRN (Reason: pain) Qty: 6 0RF
No Action
atorvastatin 10 mg tablet
10 mg PO QPM
glipizide 10 mg tablet
10 mg PO BID
omeprazole 40 mg capsule,delayed release(DR/EC)
40 mg PO QPM
diltiazem HCl 120 mg capsule,extended release 24hr
240 mg PO DAILY
hydrochlorothiazide 25 mg tablet
25 mg PO DAILY
albuterol sulfate 90 mcg/actuation HFA aerosol inhaler
1 puff INHALATION R Q4HPRN PRN (Reason: sob/wheezing)
lisinopril 40 mg tablet
40 mg PO DAILY
sertraline 50 mg tablet
50 mg PO QPM
insulin glargine [Lantus Solostar U-100 Insulin] 100 unit/mL (3 mL) insulin pen
60 unit SC HS
Mounjaro 5 mg/0.5 mL pen injector
5 mg SC TH
cetirizine [Zyrtec] 10 mg Tablet
10 mg PO QPM
ascorbic acid (vitamin C) [Vitamin C] 500 mg Tablet
500 mg PO BID
diltiazem HCl 120 mg capsule,extended release 24hr
120 mg PO QPM
Azo Cranberry 250 mg Tablet,Chewable
250 mg PO DAILY
tamsulosin 0.4 mg Capsule
0.4 mg PO HS Qty: 30 0RF
amoxicillin 500 mg capsule
500 mg PO Q8H Qty: 21 0RF
Referrals:
Silverio Manjarrez MD [Family Provider] -
Interventions
Interventions:
*Risk Screen - Suicide Last Done: 08/17/24 16:19
*General Assessment Last Done: 08/17/24 13:29
*Neglect/Abuse Screening Last Done: 08/17/24 16:19
*Nursing Disposition Last Done: 08/17/24 18:16
[facility] Assessment Last Done: 08/17/24 16:19
Discharge Date and Time
Discharge Date/Time: 08/17/24 18:16
Print Language: SAMMARINESE
[2024-08-17] MEDS: TORADOL 30 MG IM (13:36)
[2024-08-17 14:13] LABS: Urine Albumin Trace (Neg - Trace); Urine Bilirubin Negative (Negative); Urine Character Clear (Clear); Urine Color Yellow; Urine Glucose Negative (Negative); Urine Ketone Negative (Negative); Urine Leukocyte Negative (Negative); Urine Nitrite Negative (Negative); Urine Occult Blood 2+ (Negative); Urine Urobilinogen Negative (Neg - 1+)
[2024-08-17 14:30] LABS: Urine Squamous Cell >30 /LPF (Few)
[2024-08-17 14:32] LABS: Urine Red Blood Cell 80-90 /HPF (0-2); Urine White Cell 0-2 /HPF (0-5)
[2024-08-17 14:33] LABS: Urine Bacteria Few (Negative)
[2024-08-17 16:20] VITALS: BP 166/93
[2024-08-17 17:32] LABS: % Basophils 0.6 % (0-2); % Eosinophils 3.3 % (0-6); % Immature Granulocytes 0.8 % (0-0.5); % Lymphocytes 15.8 % (20.5-51.1); % Neutrophils 74.5 % (42.2-75.2); Absolute Basophils 0.1 10^3/uL (0-0.2); Absolute Eosinophils 0.3 10^3/uL (0-0.7); Absolute Immature Granulocytes 0.1 10^3/uL (0-0.05); Absolute Lymphocytes 1.5 10^3/uL (1.2-3.4); Absolute Monocytes 0.5 10^3/uL (0.1-0.6); Absolute Neutrophils 7.3 10^3/uL (1.4-6.5); Hematocrit 37.9 % (37.0-47.0); Mean Corp Hgb Conc. 31.7 g/dL (33.0-37.0); Mean Corpuscular Hgb 26.8 pg (27.0-31.0); Mean Corpuscular Volume 84.8 fL (81.0-99.0); Mean Platelet Volume 9.4 fL (7.4-10.4); Nucleated Red Blood Cells % 0 %; Platelet Count 259 10^3/uL (130-400); Red Blood Cell Count 4.47 10^6/uL (4.20-5.40); Red Cell Dist. Width 13.9 % (11.5-14.5); White Blood Cell Count 9.8 10^3/uL (4.8-10.8)
[2024-08-17 17:52] LABS: Blood Urea Nitrogen 33 mg/dl (7-17); Calcium 9.3 mg/dl (8.4-10.2); Carbon Dioxide 27 mmol/L (22-30); Chloride 98 mmol/L (98-107); Glucose 169 mg/dl (70-99); Potassium 5.1 mmol/L (3.5-5.1); Sodium 135 mmol/L (135-145); eGFR 49.61
== END 2024-08-17 18:16 | disposition home or self-care (01) ==
LOC: EMR 13:08
PROVIDERS: Physician Assistant; Physician Assistant Medical; EMERGENCY PHYSICIAN Emergency Medicine; FAMILY PHYSICIAN Family Medicine
DX: N13.2 Hydronephrosis with renal and ureteral calculous obstruction (principal); E11.22 Type 2 diabetes mellitus with diabetic chronic kidney disease; I12.9 Hypertensive chronic kidney disease with stage 1 through stage 4 chronic kidney disease, or unspecified chronic kidney disease; N18.9 Chronic kidney disease, unspecified; J45.909 Unspecified asthma, uncomplicated
CPT/HCPCS: 96372; 99284; 74176; 80048; 81003; 81015; 85025

== ENCOUNTER 2024-08-19 15:41 | Inpatient (IN) | payer OTHER, SELFPAY ==
[2024-08-19] VITALS (8 sets, daily range): BP systolic 113–171; BP diastolic 63–89; BMI 33.7
[2024-08-19] MEDS: ZOFRAN 4 MG IV (06:23)
[2024-08-19] MEDS: NSS 1000 IV ×2 (06:32→20:15)
[2024-08-19] MEDS: DILAUDID 1 MG IV (06:33)
[2024-08-19 06:34] LABS: % Basophils 0.4 % (0-2); % Eosinophils 0.4 % (0-6); % Immature Granulocytes 0.8 % (0-0.5); % Lymphocytes 8.7 % (20.5-51.1); % Neutrophils 85.7 % (42.2-75.2); Absolute Immature Granulocytes 0.1 10^3/uL (0-0.05); Absolute Lymphocytes 0.9 10^3/uL (1.2-3.4); Absolute Monocytes 0.4 10^3/uL (0.1-0.6); Absolute Neutrophils 9.3 10^3/uL (1.4-6.5); Hematocrit 34.1 % (37.0-47.0); Hemoglobin 11.2 g/dL (12.0-16.0); Mean Corp Hgb Conc. 32.8 g/dL (33.0-37.0); Mean Corpuscular Hgb 27.3 pg (27.0-31.0); Nucleated Red Blood Cells % 0 %; Platelet Count 241 10^3/uL (130-400); Red Blood Cell Count 4.11 10^6/uL (4.20-5.40); Red Cell Dist. Width 13.6 % (11.5-14.5); White Blood Cell Count 10.9 10^3/uL (4.8-10.8)
[2024-08-19 06:46] LABS: ALT (SGPT) 17 U/L (0-35); AST (SGOT) 19 U/L (14-36); Albumin 4.6 g/dl (3.5-5.0); Alkaline Phosphatase 145 U/L (38-126); Blood Urea Nitrogen 36 mg/dl (7-17); Carbon Dioxide 28 mmol/L (22-30); Chloride 92 mmol/L (98-107); Estimated Creatinine Clearance 52 ml/min; Glucose 189 mg/dl (70-99); Potassium 4.8 mmol/L (3.5-5.1); Sodium 131 mmol/L (135-145); Total Bilirubin 0.6 mg/dl (0.2-1.3); Total Protein 7.3 g/dl (6.3-8.2); eGFR 45.07
--- NOTE | 2024-08-19 06:49 | ED.GENMED ---
History of Present Illness
General
Chief Complaint: Abdominal Symptoms
Source: patient and family
Exam Limitations: none
Time Seen by Provider: 08/19/24 06:06
History of Present Illness
History of Present Illness:
69-year-old female who was here 2 days ago and diagnosed with a kidney stone. She states that yesterday was doing okay and trying to eat. She states she had little bit of cramping earlier in the day but expected it. In the evening the pain became
unbearable around 10:00 P. Daughter states that her blood sugar has been a little bit high. Patient states she has not been eating normally. She tried taking her pain medicine then she vomited. She did take her Flomax on Tuesday. No fevers.
Presents with nausea and severe left lower back pain. Pain has not changed in location.
Past History
Past History
ED Past Medical History: Asthma (with allergies), HTN, NIDDM and Other (UTI, Splenic aneurysm that they just watch. )
ED Past Surgical History: Gynecological (Total Hysterectomy) and Tonsilectomy (and adenoids)
Social History
Tobacco: Non-smoker
Alcohol: None
Drug: None
Personal:
Living: with family
Phy Exam
Physical Exam
Physical Exam:
CONSTITUTIONAL Patient alert and oriented to person, place and time. Well-appearing. Vital signs reviewed.
HEAD atraumatic, normocephalic.
EYES eyelids normal to inspection, Extraocular muscles intact, Conjunctiva normal, Sclera normal.
NECK normal range of motion, Trachea midline, no jugular venous distention.
RESPIRATORY CHEST No respiratory distress noted, Chest expansion equal
ABDOMEN abdomen nontender, Bowel sounds normal. No distention.
BACK normal inspection, no obvious deformities, no CVA tenderness
UPPER EXTREMITY range of motion normal, Motor strength normal, no cyanosis, no edema.
LOWER EXTREMITY range of motion normal, Motor strength normal, no cyanosis, no edema.
NEURO Speech normal, No focal motor deficits, Sarah coma scale 15, Memory normal, Cranial Nerves intact to screening exam.
SKIN skin warm, dry, and normal in color.
Course
Orders/Labs/Results
Orders:
Orders
08/19/24 06:20
Ondansetron Injectable [Zofran] 4 mg .ROUTE .STK-MED ONE
08/19/24 06:22
Complete Blood Count/With Diff Urgent
Comprehensive Metabolic Panel Urgent
08/19/24 06:23
Ondansetron Injectable [Zofran] 4 mg IV NOW STA
08/19/24 06:29
0.9% Sodium Chloride 1000 ml [Nss] 1,000 ml IV BOLUS
HYDROmorphone [Dilaudid] 1 mg IV NOW STA
08/19/24 07:17
Ketorolac [Toradol] 15 mg IV NOW STA
08/19/24 08:38
Urinalysis Reflex To Culture Urgent
Date Specimen was Collected: 08/19/24
Time Specimen was Collected: 08:36
Urine Microscopic Reflex Cult Urgent
Abnormal Lab Results
08/19/24 08/19/24
06:22 08:38
WBC 10.9 H 10^3/uL
(4.8-10.8)
RBC 4.11 L 10^6/uL
(4.20-5.40)
Hgb 11.2 L g/dL
(12.0-16.0)
Hct 34.1 L %
(37.0-47.0)
MCHC 32.8 L g/dL
(33.0-37.0)
Abs Immat Gran (auto) 0.1 H 10^3/uL
(0-0.05)
Absolute Neuts (auto) 9.3 H 10^3/uL
(1.4-6.5)
Absolute Lymphs (auto) 0.9 L 10^3/uL
(1.2-3.4)
Immature Gran % 0.8 H %
(0-0.5)
Neutrophils % 85.7 H %
(42.2-75.2)
Lymphocytes % 8.7 L %
(20.5-51.1)
Sodium 131 L mmol/L
(135-145)
Chloride 92 L mmol/L
(98-107)
BUN 36 H mg/dl
(7-17)
Creatinine 1.3 H mg/dL
(0.6-1.0)
Glucose 189 H mg/dl
(70-99)
Alkaline Phosphatase 145 H U/L
(38-126)
Ur Occult Blood Reflex 4+ A
(Negative)
Urine RBC 40-50 A /HPF
(0-2)
Urine Bacteria (Reflex) Few A
(Negative)
08/19/24 06:22
08/19/24 06:22
Vital Signs
Initial and Last Documented VS:
Initial Vital Signs
Temp Pulse Resp BP Pulse Ox
97.5 F 68 18 171/89 96
08/19/24 05:42 08/19/24 05:42 08/19/24 05:42 08/19/24 05:42 08/19/24 05:42
Last Documented Vital Signs
Temp Pulse Resp BP Pulse Ox
97.5 F 78 18 135/82 95
08/19/24 05:42 08/19/24 09:45 08/19/24 09:45 08/19/24 09:45 08/19/24 09:45
MDM/Problems Addressed
Differential Diagnosis Includes:
Electrolyte disturbance, UTI, persistent ureterolithiasis
MDM/Problems Addressed:
Ureterolithiasis, intractable pain, renal insufficiency, mild hyponatremia
*Pulse Oximetry
Patient hypoxic: no
*Critical Care Note
Total Time (30-74mins, 75-104mins- exclusive of procedures): Not Applicable
Data Reviewed
Source: patient and family
Patient Management
Discussion with other providers: Hospitalist and Ballistic Technician
Escalation/DeEscalation of care consider admission/obs:
On reassessment patient is a little bit nervous to go home as this has been her second visit 2 days. She is a diabetic. Given her findings and slightly progressed PEÑA, admit. Could benefit from urology consultation. Will discuss with urology
Update Note
Update Note:
Patient does feel much better. She is anxious to go home because her has dementia. Await urinalysis. If clean could consider another trial of outpatient management and stone passage. She does have a relationship with a urologist.
ED Attending Note
-
Portions of this chart may have been created with voice recognition software.� Occasional wrong word or��sound alike� substitutions may have occurred due to the inherent limitations of voice recognition software.
Discharge Plan
Departure
Patient Disposition: Admit
Date of Disposition: 08/19/24
Time of Disposition: 10:02
Admit to: Med/Surg
Presentation/result/management discussed w/ accepting MD/DO: Hospitalist
Patient with high blood pressure during this ER visit?: No
Discharge Problem:
Ureterolithiasis, Acute renal insufficiency
Prescriptions:
No Action
atorvastatin 10 mg tablet
10 mg PO QPM
glipizide 10 mg tablet
10 mg PO BID
omeprazole 40 mg capsule,delayed release(DR/EC)
40 mg PO QPM
diltiazem HCl 120 mg capsule,extended release 24hr
240 mg PO DAILY
hydrochlorothiazide 25 mg tablet
25 mg PO DAILY
albuterol sulfate 90 mcg/actuation HFA aerosol inhaler
1 puff INHALATION R Q4HPRN PRN (Reason: sob/wheezing)
lisinopril 40 mg tablet
40 mg PO DAILY
sertraline 50 mg tablet
50 mg PO QPM
insulin glargine [Lantus Solostar U-100 Insulin] 100 unit/mL (3 mL) insulin pen
60 unit SC HS
Mounjaro 5 mg/0.5 mL pen injector
5 mg SC TH
cetirizine [Zyrtec] 10 mg Tablet
10 mg PO QPM
ascorbic acid (vitamin C) [Vitamin C] 500 mg Tablet
500 mg PO BID
diltiazem HCl 120 mg capsule,extended release 24hr
120 mg PO QPM
Azo Cranberry 250 mg Tablet,Chewable
250 mg PO DAILY
tamsulosin 0.4 mg Capsule
0.4 mg PO HS Qty: 30 0RF
amoxicillin 500 mg capsule
500 mg PO Q8H Qty: 21 0RF
tamsulosin [Flomax] 0.4 mg capsule
0.4 mg PO DAILY Qty: 10 0RF
ondansetron 4 mg tablet,disintegrating
4 mg PO TIDPRN PRN (Reason: nausea/vomiting) Qty: 9 0RF
oxycodone-acetaminophen [Percocet] 5-325 mg tablet
1 tab PO Q6HPRN PRN (Reason: pain) Qty: 6 0RF
Referrals:
Silverio Manjarrez MD [Family Provider] -
Interventions
Interventions:
*Risk Screen - Suicide Last Done: 08/19/24 05:42
*General Assessment Last Done: 08/19/24 06:24
*Neglect/Abuse Screening Last Done: 08/19/24 05:42
ED- Fall Risk Assessment Last Done: 08/19/24 06:40
*ED COVID-19 Vaccine History Last Done: 08/19/24 06:24
FU-Pzrejo-Xlkuugagub Assessment Last Done: 08/19/24 06:40
Discharge Date and Time
Print Language: VIETNAMESE
[2024-08-19] MEDS: TORADOL 15 MG IV (07:23)
[2024-08-19 09:39] LABS: Urine Albumin Trace (Neg - Trace); Urine Bilirubin Negative (Negative); Urine Character Clear (Clear); Urine Color Yellow; Urine Glucose Negative (Negative); Urine Ketone Negative (Negative); Urine Leukocyte Negative (Negative); Urine Nitrite Negative (Negative); Urine Occult Blood 4+ (Negative); Urine Urobilinogen Negative (Neg - 1+)
[2024-08-19 09:53] LABS: Urine Red Blood Cell 40-50 /HPF (0-2); Urine Squamous Cell >30 /LPF (Few)
[2024-08-19 09:54] LABS: Urine Bacteria Few (Negative)
--- NOTE | 2024-08-19 12:29 | CONS.URO ---
Consultation
-
Date/Time Consultation Performed: 08/19/24 1225
Requesting Provider: ED
Performing Provider: Nikita
Reason for Consultation: Left ureteral stone
Medical History
History of Present Illness
69-year-old female who was initially found on CT scan last summer to have a 7 mm left renal stone suffered acute left flank pain 2 days ago, prompting presentation to ED on 08/16/24; CT indicated a 5-6 mm stone in left upper-mid left ureter. She
elected a trial of stone passage. Last evening the pain became unbearable, for which she returned to ED. No she is again comfortable. No sign or symptoms of infection.
Past Medical History
Past Medical History: None (Asthma, HTN, NIDDM, Left Renal Cyst, UTI, Splenic artery aneurysm)
Past Surgical History: Other (Total Hysterectomyand Tonsilectomy)
Family History
Family History: Reviewed & Not Pertinent
Allergies/Home Medications
Allergies
Allergy/AdvReac Type Severity Reaction Status Date / Time
cefuroxime [From Ceftin] Allergy Mild Rash Verified 08/19/24 05:47
Home Medications
�Medication �Instructions �Recorded �Confirmed �Type
albuterol sulfate 90 mcg/actuation 1 puff inhalation R Q4HPRN PRN 02/09/24 08/19/24 History
aerosol inhaler sob/wheezing
ascorbic acid (vitamin C) 500 mg 500 mg PO BID Supplement 02/09/24 08/19/24 History
tablet (Vitamin C)
atorvastatin 10 mg tablet 10 mg PO QPM High Cholesterol 02/09/24 08/19/24 History
cetirizine 10 mg tablet (Zyrtec) 10 mg PO QPM Allergies 02/09/24 08/19/24 History
cranberry fruit concentrate 250 mg 250 mg PO DAILY Supplement 02/09/24 08/19/24 History
chewable tablet (Azo Cranberry)
diltiazem HCl 120 mg 120 mg PO QPM Heart 02/09/24 08/19/24 History
capsule,extended release 24 hr Disease/Condition
diltiazem HCl 120 mg 240 mg PO DAILY Heart 02/09/24 08/19/24 History
capsule,extended release 24 hr Disease/Condition
hydrochlorothiazide 25 mg tablet 25 mg PO DAILY Blood Pressure 02/09/24 08/19/24 History
insulin glargine 100 unit/mL (3 60 unit SC HS Diabetes 02/09/24 08/19/24 History
mL) subcutaneous pen (Lantus
Solostar U-100 Insulin)
lisinopril 40 mg tablet 40 mg PO DAILY Blood Pressure 02/09/24 08/19/24 History
omeprazole 40 mg capsule,delayed 40 mg PO QPM Gastrointestinal Issue 02/09/24 08/19/24 History
release
sertraline 50 mg tablet 50 mg PO QPM Depression 02/09/24 08/19/24 History
tirzepatide 5 mg/0.5 mL 5 mg SC TH Diabetes 02/09/24 08/19/24 History
subcutaneous pen injector
(Mounjaro)
cinnamon bark 500 mg capsule 500 mg PO DAILY 08/19/24 08/19/24 History
(Cinnamon)
Physical Exam
Vital Signs
Vital Signs
Temp Pulse Resp BP Pulse Ox
97.5 F 78 18 135/82 95
08/19/24 05:42 08/19/24 09:45 08/19/24 09:45 08/19/24 09:45 08/19/24 09:45
Lab / Testing Results
Laboratory Results
08/19/24 06:22
08/19/24 06:22
Physical Exam
adult female on [facility]
General: No Apparent Distress
Respiratory: Non Labored Respirations
GI: Soft
Genito-urinary: No Costovertebral Tend
Skin: Warm
Neuro: Awake, Alert and Oriented
Psych: Calm
Assessment / Plan
-
6 mm left upper-mid ureteral stone
pain is managed
no signs of infection
Plan: posted for OR on 08/20/2024 for left ureteroscopy, laser lithotripsy, stenting; consent signed and placed at OR desk
Data Reviewed
-
CT Scan: Image personally visualized and interpreted (6 mm left upper-mid ureteral stone; large simple left renal cyst)
Lab Data: Labs Reviewed
Old Records: Reviewed
--- NOTE | 2024-08-19 14:49 | HPS.HSE ---
Family Physician
-
Family Physician: Silverio Manjarrez
Chief Complaint
-
Pain
History of Present Illness
69-year-old female who had a 5 to 6 mm stone in the left mid ureter she was here and was discharged now returns with more pain. No fever
Medical History
Past Medical History
Past Medical History: Reports Other
Past Surgical History: Reports Other
Social History
Tobacco: Non-smoker
Alcohol: None
Drug: None
Family History
Family History: Cancer (renal ca brother)
Allergies / Home Medications
Allergies reflects when Allergies were last updated in [email or web address].
Home Medications with original date entered in [email or web address]
Allergy/Medication List:
Allergies
Allergy/AdvReac Type Severity Reaction Status Date / Time
cefuroxime [From Ceftin] Allergy Mild Rash Verified 08/19/24 05:47
Home Medications
albuterol sulfate 90 mcg/actuation aerosol inhaler 1 puff inhalation R Q4HPRN PRN sob/wheezing 02/09/24
ascorbic acid (vitamin C) 500 mg tablet (Vitamin C) 500 mg PO BID Supplement 02/09/24
atorvastatin 10 mg tablet 10 mg PO QPM High Cholesterol 02/09/24
cetirizine 10 mg tablet (Zyrtec) 10 mg PO QPM Allergies 02/09/24
cranberry fruit concentrate 250 mg chewable tablet (Azo Cranberry) 250 mg PO DAILY Supplement 02/09/24
diltiazem HCl 120 mg capsule,extended release 24 hr 120 mg PO QPM Heart Disease/Condition 02/09/24
diltiazem HCl 120 mg capsule,extended release 24 hr 240 mg PO DAILY Heart Disease/Condition 02/09/24
hydrochlorothiazide 25 mg tablet 25 mg PO DAILY Blood Pressure 02/09/24
insulin glargine 100 unit/mL (3 mL) subcutaneous pen (Lantus Solostar U-100 Insulin) 60 unit SC HS Diabetes 02/09/24
lisinopril 40 mg tablet 40 mg PO DAILY Blood Pressure 02/09/24
omeprazole 40 mg capsule,delayed release 40 mg PO QPM Gastrointestinal Issue 02/09/24
sertraline 50 mg tablet 50 mg PO QPM Depression 02/09/24
tirzepatide 5 mg/0.5 mL subcutaneous pen injector (Mounjaro) 5 mg SC WE Diabetes 02/09/24
cinnamon bark 500 mg capsule (Cinnamon) 500 mg PO DAILY 08/19/24
Review of Systems
-
History Source: Patient
Respiratory: Denies Cough
Cardiac: Denies Chest Pain
Abdomen/GI: Reports Abdominal Pain, Nausea and Vomiting; Denies Diarrhea
Physical Exam
Vital Signs
Vital Signs
Temp Pulse Resp BP Pulse Ox
97.5 F 76 18 139/77 95
08/19/24 05:42 08/19/24 14:27 08/19/24 14:27 08/19/24 14:27 08/19/24 14:27
Physical Exam
General: Conversant
Respiratory: Clear
Cardiac: S1/S2 and Regular Rhythm
GI: Soft and Non Tender
Musculoskeletal: No Edema
Neuro: Nonfocal/grossly intact
Laboratory Results
-
08/19/24 06:22
08/19/24 06:22
Laboratory Results
Total Bilirubin 0.6 mg/dl (0.2-1.3) 08/19/24 06:22
AST 19 U/L (14-36) 08/19/24 06:22
ALT 17 U/L (0-35) 08/19/24 06:22
Alkaline Phosphatase 145 U/L (38-126) H 08/19/24 06:22
Data Reviewed
-
CT Scan: Report Reviewed by me (CT abdomen and pelvis-moderate left hydronephrosis with 5 mm obstructing stone. 9.4 cm left lower pole renal cyst. Cholelithiasis and gallbladder distention. Mild splenomegaly. 1.8 cm calcified splenic artery
aneurysm. Moderate colonic diverticulosis. Grade 2 anterolisthesis L5 on S1. Severe )
Impression/Plan
-
IMPRESSION/PLAN:
# 6 mm left upper-mid ureteral stone with hydronephrosis on the left side
For OR 08/20/2024 for left ureteroscopy, lithotripsy and stenting
Urology evaluation appreciated
IV fluids
Pain control
Elevated white count and patient also has diabetes therefore empiric antibiotics-Levaquin
Continue Flomax
# Acute kidney injury-IV fluids
Possibly prerenal from nausea and vomiting
Avoid NSAIDs
Hold Lisinopril and HCTZ
# Hyponatremia-Likely from hydrochlorothiazide. Hold and will not restart
#Hyperlipidemia-continue atorvastatin
# Hypertension-on lisinopril and diltiazem
# Depression-continue sertraline
# GERD-continue PPI
# Diabetes-on Mounjaro, Lantus insulin 60 units at night hemoglobin A1c 7.4 in January.
Will use Lantus at a lower dose because of renal dysfunction and n.p.o. status. 30 units tonight
Accu-Cheks and sliding scale coverage.
# Asthma-stable
# History of splenic artery aneurysm
# Grade 2 anterolisthesis L5 on S1, severe discogenic DJD L4 L5-S1
# Diverticulosis
# Cholelithiasis
# 9.4 cm left lower pole renal cyst
# Thyroid nodules
# DVT prophylaxis-Lovenox
# Full code
D/W Family at bed side
--- NOTE | 2024-08-19 20:00 | PTCARENOTE ---
Patient received from ED, AAOX3, offers no complaints, NSR on monitor, afebrile, blood pressure as documented. No edema noted. Lungs clear room air. Abdomen soft non tender. #20 g in LAC flushed and patent. Plan of care discussed, call pak
within reach
[2024-08-19] MEDS: ZYRTEC 10 MG PO (21:17)
[2024-08-19] MEDS: ZOLOFT 50 MG PO (21:17)
[2024-08-19] MEDS: PROTONIX 40 MG PO (21:17)
[2024-08-19] MEDS: CARDIZEM CD 120 MG PO (21:17)
[2024-08-19] MEDS: LIPITOR 10 MG PO (21:17)
[2024-08-19 21:35] LABS: Glucose - Point of Care 161 mg/dl (70-99)
[2024-08-19] MEDS: LANTUS 0.3 UNITS SC (21:44)
[2024-08-20] VITALS (13 sets, daily range): BP systolic 105–147; BP diastolic 52–79; BMI 33.3
[2024-08-20 03:31] LABS: Glucose - Point of Care 83 mg/dl (70-99)
[2024-08-20 08:35] LABS: Glucose - Point of Care 89 mg/dl (70-99)
[2024-08-20] MEDS: NSS 1000 IV (09:00)
[2024-08-20] MEDS: CARDIZEM CD 240 MG PO (09:02)
[2024-08-20 09:21] LABS: Hematocrit 31.9 % (37.0-47.0); Hemoglobin 10.5 g/dL (12.0-16.0); Mean Corp Hgb Conc. 32.9 g/dL (33.0-37.0); Mean Corpuscular Hgb 27.3 pg (27.0-31.0); Mean Corpuscular Volume 83.1 fL (81.0-99.0); Mean Platelet Volume 9.4 fL (7.4-10.4); Platelet Count 234 10^3/uL (130-400); Red Blood Cell Count 3.84 10^6/uL (4.20-5.40); Red Cell Dist. Width 13.8 % (11.5-14.5); White Blood Cell Count 7.3 10^3/uL (4.8-10.8)
[2024-08-20 09:23] LABS: Blood Urea Nitrogen 26 mg/dl (7-17); Calcium 8.7 mg/dl (8.4-10.2); Carbon Dioxide 32 mmol/L (22-30); Chloride 99 mmol/L (98-107); Estimated Creatinine Clearance 67 ml/min; Glucose 82 mg/dl (70-99); Potassium 4.5 mmol/L (3.5-5.1); Sodium 136 mmol/L (135-145); eGFR > 60.00
--- NOTE | 2024-08-20 09:36 | W.PN.HOSP.TC ---
Today's Communication/Plan
-
Cystoscopy
Assessment / Plan
Assessment / Plan
CVS: S1-S2 normal
Chest: CTA B/L
Abdomen: Soft, NT
Extremities: No edema
# 6 mm left upper-mid ureteral stone with hydronephrosis on the left side
For OR 08/20/2024 for left ureteroscopy, lithotripsy and stenting
IV fluids
Pain control
Elevated white count and patient also has diabetes therefore empiric antibiotics-Levaquin
Continue Flomax
# Acute kidney injury-
Resolving
IV fluids
Possibly prerenal from nausea and vomiting
Avoid NSAIDs
Hold Lisinopril and HCTZ
# Hyponatremia-Likely from hydrochlorothiazide. Hold and will not restart
#Hyperlipidemia-continue atorvastatin
# Anemia-check iron studies
# Hypertension-on lisinopril and diltiazem. Hold Lisinopril.
# Depression-continue sertraline
# GERD-continue PPI
# Diabetes-on Mounjaro, Lantus insulin 60 units at night hemoglobin A1c 7.4 in January.
Will use Lantus at a lower dose because of renal dysfunction and n.p.o. status. 30 units given on 08/19/2024 night
Restart at 50 units instead of 60 tonight
Accu-Cheks and sliding scale coverage.
# Asthma-stable
# History of splenic artery aneurysm
# Grade 2 anterolisthesis L5 on S1, severe discogenic DJD L4 L5-S1
# Diverticulosis
# Cholelithiasis
# 9.4 cm left lower pole renal cyst
# Thyroid nodules
# DVT prophylaxis-SCDs
# Full code
Anticipated Discharge: Within 24 hours
Subjective/Interval History
-
Date of Service: August 20, 2024
Objective Data
-
Labs:
Laboratory Results
08/20/24
08:30
WBC 7.3
Hgb 10.5 L
Hct 31.9 L
Plt Count 234
Sodium 136
Potassium 4.5
Chloride 99
Carbon Dioxide 32 H
BUN 26 H
Creatinine 1.0
Glucose 82
Calcium 8.7
Vital Signs:
Vital Signs
Temp Pulse Resp BP Pulse Ox
97.5 F 76 12 138/79 95
08/20/24 07:39 08/20/24 09:02 08/20/24 07:39 08/20/24 09:02 08/20/24 07:39
I&O
08/19/24 08/20/24 08/21/24
06:59 06:59 06:59
Intake Total 1560 / 1560
Balance 1560 / 1560
[2024-08-20 10:26] LABS: Iron 40 ug/dl (37-170)
[2024-08-20 10:35] LABS: Percent Saturation 14 % (20-50); Total Iron Binding Capacity 272 ug/dl (265-497)
--- NOTE | 2024-08-20 11:00 | PTCARENOTE ---
Pt sent to OR.
--- NOTE | 2024-08-20 11:31 | W.SUR.PREOP ---
Pre-Operative Surgical Note
-
I have examined this patient prior to the performance of the scheduled procedure.
The patient's condition is unchanged from the time of the current History and
Physical and the patient is able to undergo the scheduled procedure.
- To OR for left ULS (vs. left stent placement only)
- Continue IV antibiotics
- Surgical consent signed on chart
- Left laterality marked
D/w patient.
--- NOTE | 2024-08-20 12:04 | W.IMMPOSTOP ---
Surgical Immed Post Op Note
-
Primary Surgeon: Mohan
Pre-op Diagnosis: Obstructing mid left ureteral stone, PEÑA
Post-op Diagnosis: Same
Procedure Performed: cysto, left URS/stone extraction/stent placement
Anesthesia Type: LMA
Specimen / Cultures: Stone for analysis/None
Estimated Blood Loss: Negligible
Drains: 4.7Fr x 24 cm JJ left ureteral stent
Complications: None
Operative Findings:
5 mm stone in mid to distal left ureter - secured w/ stone basket and removed intact.
Final KUB and cystoscopy confirming appropriate left stent position.
[2024-08-20 12:13] LABS: Ferritin 67.9 ng/ml (11.1-264.0)
[2024-08-20 12:13] LABS: Glucose - Point of Care 106 mg/dl (70-99)
[2024-08-20 12:27] LABS: Vitamin B12 595 pg/ml (239-931)
[2024-08-20] MEDS: DETROL LA 4 MG PO (12:27)
[2024-08-20] MEDS: Pyridium 200 MG PO (12:27)
--- NOTE | 2024-08-20 13:06 | PTCARENOTE ---
Received pt from PACU in bed. AOx3, denies pain. VSS.
--- NOTE | 2024-08-20 15:17 | W.DS.TRANS ---
DC Summary - Beef Ribber
-
Discharge Instructions:
Discharge Diagnosis/Procedures 6 mm left mid ureteral Stone-Status post
Cystoscopy and Stent placement today
Acute kidney injury-resolved
Hyponatremia
High cholesterol
Anemia
Hypertension
Depression
Diabetes
GERD
Asthma
Grade 2 anterolisthesis L5 on S1, severe
discogenic DJD L4 L5-S1
Diverticulosis
Cholelithiasis
Thyroid nodules
9.4 cm left lower pole renal cyst
Diet Diabetic, Carb Controlled
Activity As tolerated
Driving Restrictions No driving for 24 hours
Instructions:
Stand-Alone Forms:
Changes to Home Medications: Yes
Discharge Medications:
DC Medications w/original date entered in [employer]
albuterol sulfate 90 mcg/actuation aerosol inhaler 1 puff inhalation R Q4HPRN PRN sob/wheezing 02/09/24
ascorbic acid (vitamin C) 500 mg tablet (Vitamin C) 500 mg PO BID Supplement 02/09/24
atorvastatin 10 mg tablet 10 mg PO QPM High Cholesterol 02/09/24
cetirizine 10 mg tablet (Zyrtec) 10 mg PO QPM Allergies 02/09/24
cranberry fruit concentrate 250 mg chewable tablet (Azo Cranberry) 250 mg PO DAILY Supplement 02/09/24
diltiazem HCl 120 mg capsule,extended release 24 hr 120 mg PO QPM Heart Disease/Condition 02/09/24
diltiazem HCl 120 mg capsule,extended release 24 hr 240 mg PO DAILY Heart Disease/Condition 02/09/24
insulin glargine 100 unit/mL (3 mL) subcutaneous pen (Lantus Solostar U-100 Insulin) 60 unit SC HS Diabetes 02/09/24
lisinopril 40 mg tablet 40 mg PO DAILY Blood Pressure 02/09/24
omeprazole 40 mg capsule,delayed release 40 mg PO QPM Gastrointestinal Issue 02/09/24
sertraline 50 mg tablet 50 mg PO QPM Depression 02/09/24
tirzepatide 5 mg/0.5 mL subcutaneous pen injector (Mounjaro) 5 mg SC WE Diabetes 02/09/24
cinnamon bark 500 mg capsule (Cinnamon) 500 mg PO DAILY Supplement 08/19/24
ferrous sulfate 325 mg (65 mg iron) tablet (FeroSul) 325 mg PO DAILY anemia #0 tabs 08/20/24
Home Medication Changes
new
Iron
HCTZ stopped
Pending Results: No
--- NOTE | 2024-08-20 15:17 | W.PN.UPDATE ---
Update Note
Progress Note Update
Discussed with urology. Okay for discharge. No need for antibiotics
Patient to follow-up within 2 weeks for stent removal
More than 30 minutes spent in discharge including
Final examination of the patient
Summarizing hospital stay
Instructions for continuing care to all relevant caregivers
Preparation of discharge records, prescriptions, and referral forms
Total time spent (in minutes): 39 min
--- NOTE | 2024-08-20 15:38 | W.DS.TRANS ---
Addendum entered and electronically signed by Rosalva Meneses MD 08/20/24 15:58:
Dictation- [id number]
Original Note:
DC Summary - Mill Manager
-
Discharge Instructions:
Discharge Diagnosis/Procedures 6 mm left mid ureteral Stone-Status post
Cystoscopy and Stent placement today
Acute kidney injury-resolved
Hyponatremia
High cholesterol
Anemia
Hypertension
Depression
Diabetes
GERD
Asthma
Grade 2 anterolisthesis L5 on S1, severe
discogenic DJD L4 L5-S1
Diverticulosis
Cholelithiasis
Thyroid nodules
9.4 cm left lower pole renal cyst
Diet Diabetic, Carb Controlled
Activity As tolerated
Driving Restrictions No driving for 24 hours
Instructions:
Stand-Alone Forms:
Changes to Home Medications: Yes
Discharge Medications:
DC Medications w/original date entered in [employer]
albuterol sulfate 90 mcg/actuation aerosol inhaler 1 puff inhalation R Q4HPRN PRN sob/wheezing 02/09/24
ascorbic acid (vitamin C) 500 mg tablet (Vitamin C) 500 mg PO BID Supplement 02/09/24
atorvastatin 10 mg tablet 10 mg PO QPM High Cholesterol 02/09/24
cetirizine 10 mg tablet (Zyrtec) 10 mg PO QPM Allergies 02/09/24
cranberry fruit concentrate 250 mg chewable tablet (Azo Cranberry) 250 mg PO DAILY Supplement 02/09/24
diltiazem HCl 120 mg capsule,extended release 24 hr 120 mg PO QPM Heart Disease/Condition 02/09/24
diltiazem HCl 120 mg capsule,extended release 24 hr 240 mg PO DAILY Heart Disease/Condition 02/09/24
insulin glargine 100 unit/mL (3 mL) subcutaneous pen (Lantus Solostar U-100 Insulin) 60 unit SC HS Diabetes 02/09/24
lisinopril 40 mg tablet 40 mg PO DAILY Blood Pressure 02/09/24
omeprazole 40 mg capsule,delayed release 40 mg PO QPM Gastrointestinal Issue 02/09/24
sertraline 50 mg tablet 50 mg PO QPM Depression 02/09/24
tirzepatide 5 mg/0.5 mL subcutaneous pen injector (Mounjaro) 5 mg SC WE Diabetes 02/09/24
cinnamon bark 500 mg capsule (Cinnamon) 500 mg PO DAILY Supplement 08/19/24
ferrous sulfate 325 mg (65 mg iron) tablet (FeroSul) 325 mg PO DAILY anemia #0 tabs 08/20/24
phenazopyridine 100 mg tablet (Pyridium) 100 mg PO TID PRN dysuria #14 tabs 08/20/24
Home Medication Changes
new
ferrous sulfate 325 mg (65 mg iron) tablet (FeroSul) 325 mg PO DAILY anemia #0 tabs 08/20/24
phenazopyridine 100 mg tablet (Pyridium) 100 mg PO TID PRN dysuria #14 tabs 08/20/24
Pending Results: No
--- NOTE | 2024-08-20 16:20 | CM ---
Pt medically stable for d/c today. Initial assessment completed. Admitted for pain.
Pt lives w/ spouse in a 2STH- 1 step up on the porch, then 1 step into the home
Pt is independent, does not use DME for ambulation or daily functioning. Per son, Jessee, pt has a handicapped shower stall on 1st flr bathroom for later use.
Denies SNF/VN/PT hx.
Address, point of contact and insurance verified
PCP: Dr. Manjarrez
Pharmacy: [facility]
No PT/OT needs
IMM reviewed. Son will transport pt home
Plan: Home; no needs
--- NOTE | 2024-08-20 16:47 | PTCARENOTE ---
Discharge instructions given. All questions answered.
[2024-08-23 08:20] LABS: Stone Analysis Mass 84 mg
== END 2024-08-20 16:51 | disposition home or self-care (01) | DRG 660 ==
LOC: 1 ACUTE 15:41
PROVIDERS: Surgery; ADMITTING PHYSICIAN Hospitalist; EMERGENCY PHYSICIAN Emergency Medicine; FAMILY PHYSICIAN Family Medicine; OTHER PHYSICIAN Obstetrics & Gynecology
PROC: 0T778DZ Dilation of Left Ureter with Intraluminal Device, Via Natural or Artificial Opening Endoscopic (ICD-10-PCS; 2024-08-20)
PROC: 0TC78ZZ Extirpation of Matter from Left Ureter, Via Natural or Artificial Opening Endoscopic (ICD-10-PCS; 2024-08-20)
DX: N20.2 Calculus of kidney with calculus of ureter (principal); E87.1 Hypo-osmolality and hyponatremia; N13.6 Pyonephrosis; N17.9 Acute kidney failure, unspecified; I10 Essential (primary) hypertension; F32.A Depression, unspecified; K21.9 Gastro-esophageal reflux disease without esophagitis; K57.30 Diverticulosis of large intestine without perforation or abscess without bleeding; K80.20 Calculus of gallbladder without cholecystitis without obstruction; E04.2 Nontoxic multinodular goiter; E11.9 Type 2 diabetes mellitus without complications; N28.1 Cyst of kidney, acquired
CPT/HCPCS: 74018; 76000; 80048; 80053; 81003; 81015; 82365; 82607; 82728; 82962; 83540; 83550; 85025; 85027; 87086; 96361; 96374; 96375; 99285; A4300; C1758; C1769; C1894; C2617

== ENCOUNTER 2025-02-17 22:25 | Day surgery (SDC) | payer OTHER, SELFPAY ==
[2025-02-17] VITALS (7 sets, daily range): BP systolic 109–143; BP diastolic 66–79; BMI 31.9
[2025-02-17 15:05] LABS: Hematocrit 36.2 % (37.0-47.0); Hemoglobin 12.1 g/dL (12.0-16.0); Mean Corp Hgb Conc. 33.4 g/dL (33.0-37.0); Mean Corpuscular Volume 82.6 fL (81.0-99.0); Nucleated Red Blood Cells % 0 %; Platelet Count 325 10^3/uL (130-400); Red Cell Dist. Width 13.8 % (11.5-14.5)
[2025-02-17 15:15] LABS: Urine Character Clear (Clear)
[2025-02-17 15:19] LABS: ALT (SGPT) 188 U/L (0-35); AST (SGOT) 42 U/L (14-36); Albumin 4.7 g/dl (3.5-5.0); Alkaline Phosphatase 272 U/L (38-126); Blood Urea Nitrogen 26 mg/dl (7-17); Calcium 9.6 mg/dl (8.4-10.2); Carbon Dioxide 26 mmol/L (22-30); Chloride 96 mmol/L (98-107); Glucose 123 mg/dl (70-99); Lipase 101 U/L (23-300); Potassium 5.5 mmol/L (3.5-5.1); Sodium 129 mmol/L (135-145); Total Protein 7.6 g/dl (6.3-8.2); eGFR 41.24
[2025-02-17 16:02] LABS: Urine Red Blood Cell 0-2 /HPF (0-2); Urine Squamous Cell >30 /LPF (Few)
--- NOTE | 2025-02-17 18:11 | ED.GENMED ---
History of Present Illness
<Holley José PA-C - Last Filed: 02/19/25 06:08>
General
Chief Complaint: Abdominal Symptoms
Source: patient
Exam Limitations: none
Time Seen by Provider: 02/17/25 17:19
Nursing documentation reviewed up to this point in time: agreed with
History of Present Illness
History of Present Illness:
pt is a 69 y/o F
h/o HTN, HLD
had colonoscopy 01/30 and subsequently got UTI, urine cloudy and foul smelling, no real pain/pressure
had UA showing e coli
completed course of bactrim on 02/13
on 02/14 she started having some mild lower abd pain and vomiting
seems to vomit in waves; not having conspitaotin or diarrhea but not really stooling much probably because not eating
now in the past 24 hours not eating, just liquids and is vomited mostly
had some upper abd pain that resolved at mey beginning
no fever/chills, chest pain, sob, urinary retnetion
h/o previou skidneys tone requiring stent
was on mounjaro prior to colonoscopy, had to hold it for 2 weeks before and hasn't restarted
no h/o pancreatitis
colonoscopy went well.
Past History
<Holley José PA-C - Last Filed: 02/19/25 06:08>
Past History
ED Past Medical History: Asthma (with allergies), HTN, NIDDM and Other (UTI, Splenic aneurysm that they just watch. )
ED Past Surgical History: Gynecological (Total Hysterectomy) and Tonsilectomy (and adenoids)
Social History
Tobacco: Non-smoker
Alcohol: None
Drug: None
Personal:
Living: with family
Review of Systems
<Holley José PA-C - Last Filed: 02/19/25 06:08>
Review of Systems
Allergies reviewed?: Yes
All Other Systems: Not applicable
Phy Exam
<Holley José PA-C - Last Filed: 02/19/25 06:08>
Physical Exam
Physical Exam:
GENERAL: Alert , in no apparent distress
EYE: pupils equal and reactive
NECK: Supple
ENT: o/p clr, mmm.
CARDIAC: Regular rate and rhythm .
LUNGS: Clear breath sounds bilaterally, no acute respiratory distress, no wheezes/rales/rhonchi
ABDOMEN: Soft, no significant lower abd tendenress, neg rueda's sign , no r/g, no cvat, normal bowel sounds
NEUROLOGICAL: Alert and oriented, no focal neuro deficits
SKIN: Warm and dry, skin intact.
MUSCULOSKELETAL: No edema, well perfused. neg ana maria's sign
PSYCH: Normal and appropriate interaction.
Course
<Holley José PA-C - Last Filed: 02/19/25 06:08>
Orders/Labs/Results
Orders:
Orders
02/17/25 14:46
Complete Blood Count/With Diff Urgent
Comprehensive Metabolic Panel Urgent
Lipase Urgent
Urinalysis Reflex To Culture Urgent
Date Specimen was Collected: 02/17/25
Time Specimen was Collected: 14:40
Urine Microscopic Reflex Cult Urgent
02/17/25 Dinner
NPO
Allow oral meds: Yes
Allow clear liquids: Sips of Clears
02/17/25 18:03
0.9% Sodium Chloride 1000 ml [Nss] 1,000 ml IV BOLUS
Ondansetron Injectable [Zofran] 4 mg IV NOW STA
US Abdomen Complete/Upper Urgent
Comment:
Reason For Exam: elev lfts, vomiting
02/17/25 20:45
CT Abd/pel Without Iv Or Oral Urgent
Comment:
Reason For Exam: eval for ureteral obstrucrtion
Piperacillin/Tazo 3.375 Gram [Zosyn] 3.375 gram in 50 ml IV NOW
02/17/25 22:17
Admit/Transfer Patient As Directed
Co-Sign Provider:
Level of Care: Observation services
Assign to:: Medical/Surgical
Physician / Group: Don
Diagnosis: cholecystitis
PRN Pain Medication Management As Directed
May give lesser potent ordered pain med per pt: Yes
preference::
Protocol:: Medication orders for pain may be administered in a
manner that supports deferring to patient preference
when the pt is:
- Requesting an ordered lesser potent pain medication.
Least to most potent pain medications are defined
as: acetaminophen < NSAID < tramadol < opioids
(morphine, oxycodone, hydromorphone).
- Requesting a lesser dose of the same medication IF
ORDERED.
- Requesting a less intrusive route of administration
if both routes are prescribed by the provider (PO <
IV).
02/17/25 22:18
Code Status As Directed
Resuscitation Status: Full Code
02/17/25 23:46
Acetaminophen [Tylenol] 650 mg PO Q4HPRN PRN
Albuterol [ProAIR HFA INHALER] 1 puff INH R Q4HPRN PRN sob/wheezing
HYDROmorphone [Dilaudid] 0.5 mg IV Q4HPRN PRN
Insulin Aspart Corrective Low [Novolog Flexpen-Low Resistance] See Protocol SC Q6H
Lactated Ringers [Lr] 1,000 ml IV 125 mls/hr
Ondansetron Injectable [Zofran] 4 mg IV Q6HPRN PRN
02/17/25 23:46
SURGICAL CONSULT Routine
Consulting Provider: Guillermo Etienne
Was physician already notified: Yes
Reason for consult: acute cholecystitis
Activity As Directed
Activity Level: With Assistance
Bedside Glucose Monitoring As Directed
Frequency: Q6H
Vital Signs As Directed
Frequency: Per unit guidelines
DX Deep Vein Thrombosis Video Routine
02/18/25 00:00
Heparin 5,000 units SC Q8
02/18/25 04:00
Piperacillin/Tazo 3.375 Gram [Zosyn] 3.375 gram in 50 ml IV Q6H
02/18/25 06:30
Basic Metabolic Panel IN AM
Complete Blood Count/No Diff IN AM
Magnesium IN AM
02/18/25 08:00
Diltiazem Extended Release [Cardizem Cd] 360 mg PO DAILY
02/18/25 18:00
Cetirizine HCl [Zyrtec] 10 mg PO QPM
Sertraline HCl [Zoloft] 50 mg PO QPM
Abnormal Lab Results
02/17/25
14:46
Hct 36.2 L %
(37.0-47.0)
Abs Immat Gran (auto) 0.1 H 10^3/uL
(0-0.05)
Absolute Neuts (auto) 6.8 H 10^3/uL
(1.4-6.5)
Immature Gran % 0.7 H %
(0-0.5)
Sodium 129 L mmol/L
(135-145)
Potassium 5.5 H mmol/L
(3.5-5.1)
Chloride 96 L mmol/L
(98-107)
BUN 26 H mg/dl
(7-17)
Creatinine 1.4 H mg/dL
(0.6-1.0)
Glucose 123 H mg/dl
(70-99)
AST 42 H U/L
(14-36)
ALT 188 H U/L
(0-35)
Alkaline Phosphatase 272 H U/L
(38-126)
Urine Albumin (Reflex) 1+ A
(Neg - Trace)
02/17/25 14:46
02/17/25 14:46
Vital Signs
Initial and Last Documented VS:
Initial Vital Signs
Temp Pulse Resp BP Pulse Ox
36.6 C 80 16 143/72 99
02/17/25 14:38 02/17/25 14:38 02/17/25 14:38 02/17/25 14:38 02/17/25 14:38
Last Documented Vital Signs
Temp Pulse Resp BP Pulse Ox
36.4 C 79 17 96/64 94
02/19/25 03:25 02/19/25 03:25 02/19/25 03:25 02/19/25 03:25 02/19/25 03:25
<Bruno Owens MD - Last Filed: 02/17/25 20:47>
Orders/Labs/Results
Orders:
Orders
02/17/25 14:46
Complete Blood Count/With Diff Urgent
Comprehensive Metabolic Panel Urgent
Lipase Urgent
Urinalysis Reflex To Culture Urgent
Date Specimen was Collected: 02/17/25
Time Specimen was Collected: 14:40
Urine Microscopic Reflex Cult Urgent
02/17/25 Dinner
NPO
Allow oral meds: Yes
Allow clear liquids: Sips of Clears
02/17/25 18:03
0.9% Sodium Chloride 1000 ml [Nss] 1,000 ml IV BOLUS
Ondansetron Injectable [Zofran] 4 mg IV NOW STA
US Abdomen Complete/Upper Urgent
Comment:
Reason For Exam: elev lfts, vomiting
02/17/25 20:45
CT Abd/pel Without Iv Or Oral Urgent
Comment:
Reason For Exam: eval for ureteral obstrucrtion
Piperacillin/Tazo 3.375 Gram [Zosyn] 3.375 gram in 50 ml IV NOW
02/17/25 22:17
Admit/Transfer Patient As Directed
Co-Sign Provider:
Level of Care: Observation services
Assign to:: Medical/Surgical
Physician / Group: Don
Diagnosis: cholecystitis
PRN Pain Medication Management As Directed
May give lesser potent ordered pain med per pt: Yes
preference::
Protocol:: Medication orders for pain may be administered in a
manner that supports deferring to patient preference
when the pt is:
- Requesting an ordered lesser potent pain medication.
Least to most potent pain medications are defined
as: acetaminophen < NSAID < tramadol < opioids
(morphine, oxycodone, hydromorphone).
- Requesting a lesser dose of the same medication IF
ORDERED.
- Requesting a less intrusive route of administration
if both routes are prescribed by the provider (PO <
IV).
02/17/25 22:18
Code Status As Directed
Resuscitation Status: Full Code
02/17/25 23:46
Acetaminophen [Tylenol] 650 mg PO Q4HPRN PRN
Albuterol [ProAIR HFA INHALER] 1 puff INH R Q4HPRN PRN sob/wheezing
HYDROmorphone [Dilaudid] 0.5 mg IV Q4HPRN PRN
Insulin Aspart Corrective Low [Novolog Flexpen-Low Resistance] See Protocol SC Q6H
Lactated Ringers [Lr] 1,000 ml IV 125 mls/hr
Ondansetron Injectable [Zofran] 4 mg IV Q6HPRN PRN
02/17/25 23:46
SURGICAL CONSULT Routine
Consulting Provider: Guillermo Etienne
Was physician already notified: Yes
Reason for consult: acute cholecystitis
Activity As Directed
Activity Level: With Assistance
Bedside Glucose Monitoring As Directed
Frequency: Q6H
Vital Signs As Directed
Frequency: Per unit guidelines
DX Deep Vein Thrombosis Video Routine
02/18/25 00:00
Heparin 5,000 units SC Q8
02/18/25 04:00
Piperacillin/Tazo 3.375 Gram [Zosyn] 3.375 gram in 50 ml IV Q6H
02/18/25 06:30
Basic Metabolic Panel IN AM
Complete Blood Count/No Diff IN AM
Magnesium IN AM
02/18/25 08:00
Diltiazem Extended Release [Cardizem Cd] 360 mg PO DAILY
02/18/25 18:00
Cetirizine HCl [Zyrtec] 10 mg PO QPM
Sertraline HCl [Zoloft] 50 mg PO QPM
Abnormal Lab Results
02/17/25
14:46
Hct 36.2 L %
(37.0-47.0)
Abs Immat Gran (auto) 0.1 H 10^3/uL
(0-0.05)
Absolute Neuts (auto) 6.8 H 10^3/uL
(1.4-6.5)
Immature Gran % 0.7 H %
(0-0.5)
Sodium 129 L mmol/L
(135-145)
Potassium 5.5 H mmol/L
(3.5-5.1)
Chloride 96 L mmol/L
(98-107)
BUN 26 H mg/dl
(7-17)
Creatinine 1.4 H mg/dL
(0.6-1.0)
Glucose 123 H mg/dl
(70-99)
AST 42 H U/L
(14-36)
ALT 188 H U/L
(0-35)
Alkaline Phosphatase 272 H U/L
(38-126)
Urine Albumin (Reflex) 1+ A
(Neg - Trace)
02/17/25 14:46
02/17/25 14:46
Vital Signs
Initial and Last Documented VS:
Initial Vital Signs
Temp Pulse Resp BP Pulse Ox
36.6 C 80 16 143/72 99
02/17/25 14:38 02/17/25 14:38 02/17/25 14:38 02/17/25 14:38 02/17/25 14:38
Last Documented Vital Signs
Temp Pulse Resp BP Pulse Ox
36.4 C 79 17 96/64 94
02/19/25 03:25 02/19/25 03:25 02/19/25 03:25 02/19/25 03:25 02/19/25 03:25
<Holley José PA-C - Last Filed: 02/19/25 06:08>
MDM/Problems Addressed
Differential Diagnosis Includes:
cholelithaisis, cholecystitss, DILI, kidney stones, UTI, dehydration, viral syndrome
MDM/Problems Addressed:
69 y/o F with previous kidney stone/uti in the past
had uti (e coli on urine cluture from 1 week ago) completed bactrim
after the bactrim started having nauesa/vomiting, some mild lower abd pain
the vomiting comes in waves
she really hasn't had abd pain
she is voiding well
no diarrhea
appears well
stsable vitals
abdomensoft and nontender
no jaundice
appraecitate elevatde LFTs (no history of, except alk phos has previously been elevated)
has had previous imaging showing cholelithiasis
will eval fo rcholecytsiistis with US
may require CT imaging
has some underlying mild CKD which is at top of her previous 1.4, higher than 1.0 which it downdrended to previously\\
US shows signs of acute calculus steven which explains symptmos
admit
surgery aware
<Holley José PA-C - Last Filed: 02/19/25 06:08>
*Pulse Oximetry
SaO2: 99
Oxygen Mode of Delivery: Room air
Patient hypoxic: no (94)
*Critical Care Note
Total Time (30-74mins, 75-104mins- exclusive of procedures): Not Applicable
ED Attending Note
<Holley José PA-C - Last Filed: 02/19/25 06:08>
-
Portions of this chart may have been created with voice recognition software.� Occasional wrong word or��sound alike� substitutions may have occurred due to the inherent limitations of voice recognition software.
<Bruno Owens MD - Last Filed: 02/17/25 20:47>
ED Attending Note
Patient seen and examined by attending physician: Yes
I performed the substantive portion of visit, reviewed & personally made and approve the management plan that is documented in note by myself or WILIAN.: Yes
ED Attending Note:
Patient with a routine colonoscopy done mid January. Had a flat polyp and was referred to a specialist at [place]. Follow-up procedure remove the polyp. During that time she developed a UTI with cloudy urine and a positive urine. Started Bactrim a
week ago 5 days worth. Has had intermittent episodes of nausea and vomiting that have persisted the last 2 days. No fever chills no flank or back pain.
On exam patient is nontoxic in no distress. Warm and dry. Perfusing well. Lungs clear and equal. Heart regular rate and rhythm no murmur. Abdomen nontender. No liver or spleen palpable. No rebound or guarding no mass or hernia.
LFTs are elevated. Differential would include transaminitis from Bactrim, Mounjaro related. Gallbladder. Ultrasound shows acute cholecystitis. Slightly dilated renal system. Will get CT scan with history of stones. Admission for cholecystitis.
Discharge Plan
Departure
Patient Disposition: Admit
Date of Disposition: 02/17/25
Time of Disposition: 20:46
Admit to: Med/Surg
Presentation/result/management discussed w/ accepting MD/DO: Hospitalist
Condition: Fair
Covid-19: Not Applicable
Discharge Problem:
Acute cholecystitis
Interventions
Interventions:
*Risk Screen - Suicide Last Done: 02/17/25 14:38
*General Assessment Last Done: 02/17/25 14:38
*Neglect/Abuse Screening Last Done: 02/17/25 14:38
*ED- Fall Risk Assessment Last Done: 02/17/25 18:36
*ED COVID-19 Vaccine History Last Done: 02/17/25 18:36
*Nursing Disposition Last Done: 02/17/25 23:50
LU-Fomhtz-Oauujnvdfe Assessment Last Done: 02/17/25 18:36
Discharge Date and Time
Discharge Date/Time: 02/17/25 23:50
[2025-02-17] MEDS: NSS 1000 IV (18:35)
[2025-02-17] MEDS: ZOSYN 50 IV (20:53)
--- NOTE | 2025-02-17 21:49 | HPS.HSE ---
Family Physician
-
Family Physician: OUMAR IRWIN PA-C
Chief Complaint
-
Abdominal pain
History of Present Illness
Is a 69-year-old female with past medical history of nephrolithiasis, interstitial nephritis, hypertension, hyperlipidemia, insulin-dependent diabetes presenting to the emergency department with nausea.
Patient reported a recent colonoscopy. She also recently restarted Mounjaro. She has had a few days of nausea and then vomiting that was nonbloody and nonbilious. She actually denies abdominal pain. She denies any diarrhea. She denies having
any fevers or chills. She had no recent surgical procedures otherwise. She reports decreased p.o. intake and dehydration. She denies any urinary symptoms including dysuria frequency urgency or incontinence.
In the emergency department patient was afebrile, blood pressure was 110/60 with a pulse of 75 satting 98% on room air.
CBC was unremarkable. Electrolytes notable for a sodium of 129 but otherwise notable for potassium of 5.5. Urine creatinine oral 26 and 1.4 respectively with a glucose of 123. She has elevations in AST of 42, ALT of 188 and alk phos of 270.
Lipase was negative. UA was unremarkable.
CT of the abdomen pelvis showing a distended gallbladder, cholelithiasis and diffuse gallbladder wall thickening.
Right upper quadrant ultrasound pending
Medical History
Past Medical History
Past Medical History: Reports Other ( kidney stone 15 years ago, asthma, hypertension, diabetes, stable splenic artery aneurysm)
Past Surgical History: Reports None
Social History
Tobacco: Non-smoker
Alcohol: None
Drug: None
Family History
Family History: Cancer (renal ca brother)
Allergies / Home Medications
Allergies reflects when Allergies were last updated in [facility].
Home Medications with original date entered in [facility]
Allergy/Medication List:
Allergies
Allergy/AdvReac Type Severity Reaction Status Date / Time
cefuroxime [From Ceftin] Allergy Mild Rash Verified 08/19/24 05:47
Home Medications
albuterol sulfate 90 mcg/actuation aerosol inhaler 1 puff inhalation R Q4HPRN PRN sob/wheezing 02/09/24
ascorbic acid (vitamin C) 500 mg tablet (Vitamin C) 500 mg PO BID Supplement 02/09/24
atorvastatin 10 mg tablet 10 mg PO QPM High Cholesterol 02/09/24
cetirizine 10 mg tablet (Zyrtec) 10 mg PO QPM Allergies 02/09/24
cranberry fruit concentrate 250 mg chewable tablet (Azo Cranberry) 250 mg PO DAILY Supplement 02/09/24
diltiazem HCl 120 mg capsule,extended release 24 hr 120 mg PO QPM Heart Disease/Condition 02/09/24
diltiazem HCl 120 mg capsule,extended release 24 hr 240 mg PO DAILY Heart Disease/Condition 02/09/24
hydrochlorothiazide 25 mg tablet 25 mg PO DAILY Blood Pressure 02/09/24
insulin glargine 100 unit/mL (3 mL) subcutaneous pen (Lantus Solostar U-100 Insulin) 60 unit SC HS Diabetes 02/09/24
lisinopril 40 mg tablet 40 mg PO DAILY Blood Pressure 02/09/24
omeprazole 40 mg capsule,delayed release 40 mg PO QPM Gastrointestinal Issue 02/09/24
sertraline 50 mg tablet 50 mg PO QPM Depression 02/09/24
tirzepatide 5 mg/0.5 mL subcutaneous pen injector (Mounjaro) 5 mg SC WE Diabetes 02/09/24
cinnamon bark 500 mg capsule (Cinnamon) 500 mg PO DAILY 08/19/24
Review of Systems
-
Constitutional: Reports No Symptoms
EENT: Reports No Symptoms
Respiratory: Reports No Symptoms
Cardiac: Reports No Symptoms
Abdomen/GI: Reports Abdominal Pain
: Reports No Symptoms
Musculoskeletal: Reports No Symptoms
Skin: Reports No Symptoms
Neurological: Reports No Symptoms
Endocrine: Reports No Symptoms
Hematologic/Lymphatic: Reports No Symptoms
Psych: Reports No Symptoms
Physical Exam
Vital Signs
Vital Signs
Temp Pulse Resp BP Pulse Ox
98.6 F 75 16 109/66 98
02/17/25 18:36 02/17/25 20:30 02/17/25 20:30 02/17/25 21:00 02/17/25 20:30
Physical Exam
General: Conversant
HEENT: NormoCephalic, Anicteric and Moist mucous membranes
Respiratory: Clear
Cardiac: S1/S2 and Regular Rhythm
GI: Soft and Non Tender
Musculoskeletal: No Edema
Neuro: Nonfocal/grossly intact
Psych: Calm
Laboratory Results
-
02/17/25 14:46
02/17/25 14:46
Laboratory Results
Total Bilirubin 0.6 mg/dl (0.2-1.3) 02/17/25 14:46
AST 42 U/L (14-36) H 02/17/25 14:46
ALT 188 U/L (0-35) H 02/17/25 14:46
Alkaline Phosphatase 272 U/L (38-126) H 02/17/25 14:46
Lipase 101 U/L (23-300) 02/17/25 14:46
Data Reviewed
-
CT Scan: Report Reviewed by me
Ultrasound: Image Personally Visualized and interpreted
Lab Data: Labs Reviewed by me
Old Records: Reviewed
Impression/Plan
-
IMPRESSION:
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
PLAN:
Acute cholecystitis -abdominal pain, CT scan with distended gallbladder, gallstones and gallbladder wall thickening with tenderness to palpation consistent with acute cholecystitis, patient without sepsis
-Admit to MedSurg
-N.p.o., IV fluid
-Pain control and antiemetics
-Given Zosyn in the emergency department, no history of ESBL resistant bacteria, no sepsis, last admission was over 6 months ago, will continue with Unasyn
-Surgical consult
Diabetes
-Continue with sliding scale insulin while n.p.o. every 6 hours
PEÑA on CKD -history of tubulointerstitial disease, has mild dehydration with slight elevation in creatinine to 1.4
[2025-02-18] VITALS (9 sets, daily range): BP systolic 107–132; BP diastolic 54–87
[2025-02-18] LABS: Glucose - Point of Care 93 mg/dl (70-99)
[2025-02-18] MEDS: HEPARIN 5000 UNITS SC ×3 (00:03→17:53)
[2025-02-18] MEDS: LR 1000 IV ×3 (00:04→22:49)
--- NOTE | 2025-02-18 01:01 | PTCARENOTE ---
Received pt from ER,alert oriented ambulated from stretcher to bed without difficulty.Pts physical assessment preformed with ease,pt denies pain,good historian.IVF initiated at 125 mls hour.Pts accucheck 93,pts Dexicom reading 92.Pt informed she is
NPO for possible pending SX.Sleeping after assessment .
[2025-02-18] MEDS: ZOSYN 50 IV ×4 (03:18→21:30)
[2025-02-18 06:47] LABS: Glucose - Point of Care 91 mg/dl (70-99)
[2025-02-18 08:04] LABS: Hematocrit 31.9 % (37.0-47.0); Hemoglobin 10.8 g/dL (12.0-16.0); Mean Corp Hgb Conc. 33.9 g/dL (33.0-37.0); Mean Corpuscular Volume 81.6 fL (81.0-99.0); Platelet Count 257 10^3/uL (130-400); Red Cell Dist. Width 14.1 % (11.5-14.5)
[2025-02-18 08:29] LABS: Blood Urea Nitrogen 20 mg/dl (7-17); Calcium 8.8 mg/dl (8.4-10.2); Carbon Dioxide 21 mmol/L (22-30); Chloride 102 mmol/L (98-107); Estimated Creatinine Clearance 60 ml/min; Glucose 85 mg/dl (70-99); Magnesium 2.1 mg/dl (1.6-2.3); Potassium 4.5 mmol/L (3.5-5.1); Sodium 130 mmol/L (135-145); eGFR 55.07
--- NOTE | 2025-02-18 08:55 | W.PN.HOSP.TC ---
Today's Communication/Plan
-
Surgery evaluation
Empiric antibiotics per
IV hydration.
Hold lisinopril.
Hold standing dose of Lantus while NPO
Follow BMP in a.m.
Assessment / Plan
Assessment / Plan
Impression/plan
69 years old female with history of tubulointerstitial nephritis, asthma, hypertension, IDDM presenting with days of nausea vomiting and mostly right lower quadrant abdominal pain.
Nausea vomiting, abdominal pain mostly right lower quadrant.
Afebrile
Exam with no upper quadrant tenderness, negative Holman
Noted with normal white count
Imaging including ultrasound and CT scan with cholelithiasis, mild diffuse gallbladder wall thickening (ultrasound)
Concern for acute cholecystitis.
Symptoms also be secondary to reinstatement of GLP-1 agonist (recently reintroduced to Mounjaro)
NPO.
Surgery to evaluate
IV fluids
Zosyn initiated empirically
Acute kidney injury
Hypovolemic hyponatremia
Hyperkalemia
Improving with isotonic solution
Hold lisinopril
Follow BMP
IDDM
Patient reported improvement of hemoglobin A1c from 9 to sevens
Hold standing dose of Lantus while NPO.
Basal bolus protocol with serial Accu-Cheks
Essential hypertension
Palpitations
Hold lisinopril as above
Continue diltiazem
History of nephrolithiasis
Left renal cyst compressing ureter with chronic hydronephrosis
Patient presents with no urinary complaints.
Urinalysis not suggestive of infection
Anticipated Discharge: 24 - 48 hours
Subjective/Interval History
-
Date of Service: February 18, 2025
Objective Data
-
Labs:
Laboratory Results
02/18/25
06:30
WBC 7.4
Hgb 10.8 L
Hct 31.9 L
Plt Count 257 D
Sodium 130 L
Potassium 4.5
Chloride 102
Carbon Dioxide 21 L
BUN 20 H
Creatinine 1.1 H
Glucose 85
Calcium 8.8
Vital Signs:
Vital Signs
Temp Pulse Resp BP Pulse Ox
97.9 F 72 16 111/58 95
02/18/25 07:10 02/18/25 07:10 02/18/25 07:10 02/18/25 07:10 02/18/25 07:10
I&O
02/17/25 02/18/25 02/19/25
06:59 06:59 06:59
Intake Total 550 / 550
Balance 550 / 550
Physical Exam
-
General: Well Developed and No Apparent Distress
HEENT: Normocephalic, Atraumatic and Moist Mucous Membranes
Respiratory: Clear to Auscultation
Cardiac: Regular Rhythm and S1/S2; Negative Murmur, Rub or Gallop
GI: Soft, Nontender, Nondistended and Normal Bowel Sounds; Negative Organomegaly
Rectal: Deferred by Provider
Musculoskeletal: No Clubbing, No Cyanosis and No Edema
Skin: Negative Rash
Neuro: Nonfocal/Grossly Intact
--- NOTE | 2025-02-18 09:38 | CON.GS ---
Consultation
-
Date/Time Consultation Requested: 02/17/25, 11:49pm
Date/Time Consultation Performed: 02/18/25; 9:15am
Requesting Provider: Cookie Ochoa
Performing Provider: Esequiel Garcia
Reason for Consultation: c/f cholecystitis
Medical History
-
Chief Complaint: nausea/vomiting 2-3 days, no PO intake for 24hr
History of Present Illness:
Maxine Gongora is a 69yo F with a PMH of HTN, DM-II, nephrolithiasis, and interstitial nephritis who presented with 2-3 days of nausea/vomiting with no PO intake for 24hr, with imaging & labs in ED on 02/17 c/f acute cholecystitis; admitted to the
floor & general surgery consulted for eval & mgmt of possible acute cholecystitis.
The pt reports that 2-3 days ago she began having nausea/vomiting that was worse in the mornings. Not associated with meals. Over last 24 hrs prior to admission, did not have any solid food PO. Pt has hx of n/v with mounjaro, which she recently held
for 3wks for colonoscopy w polyp removal and recently restarted. Denied any diarrhea, fever/chills, or abdominal pain on presentation. Denied dysuria, hematuria. In ED, pt was afebrile with normal WBC and elevated absolute neutrophils (6.8).
Elevated AST (82), ALT (188), & alk phos (270). Na decreased to 129. CT a/p and abdominal US both demonstrated distended gallbladder with cholelithiasis and gallbladder wall thickening. Pt started on IVF, Zosyn abx, PRN analgesia & antiemetics, made
NPO, and admitted to floor.
This morning, pt denied abdominal pain or n/v. Reported feeling much better and was feeling hungry overnight. Denies fever/chills overnight.
Past Medical History
Past Medical History: HTN, IDDM and Other (interstitial nephritis, nephrolithiasis)
Past Surgical History: Gynecological (hysterectomy)
Social History
Tobacco: Non-Smoker
Allergies / Home Medications
Allergy/AdvReac Type Severity Reaction Status Date / Time
cefuroxime (From Ceftin) Allergy Mild Rash Verified 08/19/24 05:47
�Medication �Instructions �Recorded �Confirmed �Type
albuterol sulfate 90 mcg/actuation 1 puff inhalation R Q4HPRN PRN 02/09/24 02/17/25 History
aerosol inhaler sob/wheezing
ascorbic acid (vitamin C) 500 mg 500 mg PO BID Supplement 02/09/24 02/17/25 History
tablet (Vitamin C)
atorvastatin 10 mg tablet 10 mg PO QPM High Cholesterol 02/09/24 02/17/25 History
cetirizine 10 mg tablet (Zyrtec) 10 mg PO QPM Allergies 02/09/24 02/17/25 History
cranberry fruit concentrate 250 mg 250 mg PO DAILY Supplement 02/09/24 02/17/25 History
chewable tablet (Azo Cranberry)
diltiazem HCl 120 mg 120 mg PO QPM Heart 02/09/24 02/17/25 History
capsule,extended release 24 hr Disease/Condition
diltiazem HCl 120 mg 240 mg PO DAILY Heart 02/09/24 02/17/25 History
capsule,extended release 24 hr Disease/Condition
insulin glargine 100 unit/mL (3 50 unit SC HS Diabetes 02/09/24 02/17/25 History
mL) subcutaneous pen (Lantus
Solostar U-100 Insulin)
lisinopril 40 mg tablet 40 mg PO DAILY Blood Pressure 02/09/24 02/17/25 History
omeprazole 40 mg capsule,delayed 40 mg PO QPM Gastrointestinal Issue 02/09/24 02/17/25 History
release
sertraline 50 mg tablet 50 mg PO QPM Depression 02/09/24 02/17/25 History
tirzepatide 5 mg/0.5 mL 7.5 mg SC QUIGLEY Diabetes 02/09/24 02/17/25 History
subcutaneous pen injector
(Carmenza)
Review of Systems
-
History Source: Patient
Constitutional: Fever (denies fever) and Chills (denies chills)
Abdomen/GI: Nausea, Vomiting, Diarrhea (no diarrhea) and Pain (no abdominal pain)
: No Symptoms
A 10 point review of systems was completed, and was negative except as per HPI.
Physical Exam
Vital Signs
Temp Pulse Resp BP Pulse Ox
97.9 F 72 16 111/58 95
02/18/25 07:10 02/18/25 07:10 02/18/25 07:10 02/18/25 07:10 02/18/25 07:10
02/17/25 02/18/25 02/19/25
06:59 06:59 06:59
Actual Weight 95.254 kg
Body Mass Index (BMI) 31.9
Lab Results
02/18/25 06:30
02/18/25 06:30
WBC 7.4 10^3/uL (4.8-10.8) 02/18/25 06:30
Hgb 10.8 g/dL (12.0-16.0) L 02/18/25 06:30
Hct 31.9 % (37.0-47.0) L 02/18/25 06:30
Plt Count 257 10^3/uL (130-400) D 02/18/25 06:30
Abs Immat Gran (auto) 0.1 10^3/uL (0-0.05) H 02/17/25 14:46
Neutrophils % 67.0 % (42.2-75.2) 02/17/25 14:46
Physical Exam
General: Well Developed, Well Nourished and No Apparent Distress
HEENT: Normocephalic, Anicteric and Atraumatic
Respiratory: Non Labored Respirations
GI: Soft, Non Tender (negative Holman's sign) and Non Distended
Psych: Calm
Data Reviewed
-
CT Scan: Image Personally Visualized and interpreted, Report Reviewed by me and Discussed with Patient
Ultrasound: Image Personally Visualized and interpreted, Report Reviewed by me and Discussed with Patient
Labs: Labs Reviewed by me
Critical Care Time (in minutes): 40
Total Time Spent with Patient (in minutes): 20
Assessment / Plan
-
Maxine Gongora is a 69yo F with a PMH of HTN, DM-II, nephrolithiasis, and interstitial nephritis who presented with n/v, with 7/6 imaging & labs c/f acute cholecystitis, now with planned lap steven.
Assessment: Pt presentation most c/w acute cholecystitis, given elevated alk phos, AST, ALT, & absolute neutrophils; presentation with n/v; CT & US with gallbladder distention, cholelithiasis, & wall thickening. Negative Holman's sign & lack of abd
pain on exam potentially unreliable 2/2 diabetic neuropathy. Episode of cholecystitis potentially triggered by reinitiation of mounjaro. Pt comfortable and AVSS - OR tomorrow if needed vs today, non-urgent. Na trending up on new labs, improving with
IVF (hypovolemic hyponatremia per primary note).
Plan:
- Plan for OR today or tmrw for laparoscopic cholecystectomy
- Continue Zosyn abx today and for 24hr post-op
- Continue NPO
- Continue IVF
- Continue PRN zofran & analgesia (tylenol 650mg q4h, dilaudid 0.5mg q4h); consider scheduling tylenol post-op
- DVT ppx: holding heparin 4-6hr pre-op
- Dispo: to home, likely within 24hr post-op
[2025-02-18 10:19] LABS: Glycohemoglobin (HgbA1c) 7.2 % (4.0-5.6)
--- NOTE | 2025-02-18 11:59 | W.SUR.PREOP ---
Pre-Operative Surgical Note
-
I have examined this patient prior to the performance of the scheduled procedure.
The patient's condition is unchanged from the time of the current History and
Physical and the patient is able to undergo the scheduled procedure.
[2025-02-18 12:36] LABS: Glucose - Point of Care 97 mg/dl (70-99)
--- NOTE | 2025-02-18 16:13 | CM ---
Attempted bedside meeting for initial assessment and to issue ARORA
Off unit in OR
CM to re-attempt tomorrow
--- NOTE | 2025-02-18 16:23 | W.IMMPOSTOP ---
Surgical Immed Post Op Note
-
Primary Surgeon: Esequiel Garcia MD
Assisting Surgeon: None
Pre-op Diagnosis: Acute cholecystitis
Post-op Diagnosis: Same
Procedure Performed: Laparoscopic cholecystectomy with cholangiogram
Anesthesia Type: General
Specimen / Cultures: Gallbladder and contents
Estimated Blood Loss: 11 cc
Complications: None
Operative Findings: Distended but fairly normal-appearing gallbladder, some mild inflammation noted in the cystic triangle. Critical view of safety obtained prior to a cholangiogram which demonstrated no distal filling defects and normal biliary
anatomy. Duct and artery ligated with 5 mm titanium clips.
POST OP PLAN:
Imaging: None
Labs: Routine AM
Diet: Advance to Regular as tolerated
Analgesia: Tylenol 650mg q6 Satya, Maite 5mg q6 PRN, Dilaudid 0.5mg q2h PRN
Neuro/vascular checks: q4h
AC/AP: Hold Therapeutic AC, Ok for DVT PPx
Activity: Ad Nirmala
Wound/Incisions/Drains: Routine
Abx: Can continue antibiotics perioperatively, stop on discharge.
Dispo: RNF, anticipate discharge home tomorrow.
[2025-02-18 16:38] LABS: Glucose - Point of Care 150 mg/dl (70-99)
--- NOTE | 2025-02-18 17:40 | PTCARENOTE ---
Pt returned from the PACU via bed. Pt is AAOx3, HRR, lungs are clear, resp. easy. Pt denies nausea or pain at this time. Pt's abd with 4 lap sites and 1 poke site well approximated with surgical glue. Pt instructed on plan of care. Pt verbalized
understanding of instructions, call pak is within reach.
[2025-02-18] MEDS: ZYRTEC 10 MG PO (17:55)
[2025-02-18] MEDS: ZOLOFT 50 MG PO (17:55)
[2025-02-18 18:20] LABS: Glucose - Point of Care 158 mg/dl (70-99)
[2025-02-18 21:45] LABS: Glucose - Point of Care 233 mg/dl (70-99)
[2025-02-18] MEDS: NOVOLOG FLEXPEN-LOW RESISTANCE 2 UNITS SC (21:55)
[2025-02-18] MEDS: LR IV ×2 (22:00→22:48)
[2025-02-19] MEDS: HEPARIN 5000 UNITS SC ×2 (00:15→08:21)
[2025-02-19] MEDS: TYLENOL 650 MG PO (00:18)
[2025-02-19 03:25] VITALS: BP 96/64
[2025-02-19] MEDS: ZOSYN 50 IV (03:56)
[2025-02-19 07:02] LABS: Glucose - Point of Care 290 mg/dl (70-99)
[2025-02-19 07:24] LABS: Hematocrit 33.9 % (37.0-47.0); Hemoglobin 11.3 g/dL (12.0-16.0); Mean Corp Hgb Conc. 33.3 g/dL (33.0-37.0); Mean Corpuscular Volume 82.1 fL (81.0-99.0); Nucleated Red Blood Cells % 0 %; Platelet Count 284 10^3/uL (130-400); Red Cell Dist. Width 13.4 % (11.5-14.5)
[2025-02-19 07:45] VITALS: BP 141/97
--- NOTE | 2025-02-19 07:50 | W.PN.GS2 ---
Documented by User: Chelsy Atkinson MD, Resident 02/19/25 08:27
Today's Communication / Plan
-
Plan:
- Stop Zosyn today
- Continue PRN analgesia (tylenol 650mg)
- Give 25 units lantus prior to discharge to address elevated glucose
- Diet: regular PO
- DVT ppx: continue heparin
- Dispo: to home EOD today, pending continues tolerating solids PO
Assessment / Plan
-
Patient is a 69yo F with a PMH of HTN, DM-II, nephrolithiasis, and interstitial nephritis who presented with n/v & imaging/labs c/f acute cholecystitis, now POD1 s/p lap steven, recovering well.
Assessment: AVSS. Normal WBC. Tolerating some PO solids without n/v and without significant pain, minimal PRN analgesic use. Patient recovering well post-op without concern from surgical perspective. Elevated glucose 2/2 absent home lantus during
inpt stay.
Plan:
- Stop Zosyn today
- Continue PRN analgesia (tylenol 650mg)
- Give 25 units lantus prior to discharge to address elevated glucose
- Diet: regular PO
- DVT ppx: continue heparin
- Dispo: to home EOD today, pending continues tolerating solids PO
Time Spent
Total Time Spent with Patient (in minutes): 15
Subjective Data
-
Date of Service: February 19, 2025
Patient reports feeling well this morning, has minimal pain (took tylenol but has not used PRN dilaudid). She has been urinating and belching. Last BM was pre-op, no flatus/BM yet post-op. Has been tolerating clears and some bits of pb&j sandwich
last night without nausea/vomiting. Has been getting up out of bed.
Objective Data
-
Intake and Output
02/18/25 02/19/25 02/20/25
06:59 06:59 06:59
Intake Total 550 / 550 150 / 150 1839
Output Total 800 / 800
Balance 550 / 550 -650 / -650 1839
Intake:
Oral fluids 240 / 240
IV fluids (Total) 500 / 500 150 / 150 1500 / 1500
normosol 150 / 150
IV piggybacks 50 / 50 100 / 100
Output:
Urine, Voided 800 / 800
Other:
Number of approximated MODERATE 2 2 3
amounts of urine
Vital Signs
Temp Pulse Resp BP Pulse Ox
97.5 F 79 17 96/64 94
02/19/25 03:25 02/19/25 03:25 02/19/25 03:25 02/19/25 03:25 02/19/25 03:25
Lab Results
02/19/25 07:08
Calcium 8.8 mg/dl (8.4-10.2) 02/18/25 06:30
Magnesium 2.1 mg/dl (1.6-2.3) 02/18/25 06:30
Total Bilirubin 0.6 mg/dl (0.2-1.3) 02/17/25 14:46
AST 42 U/L (14-36) H 02/17/25 14:46
ALT 188 U/L (0-35) H 02/17/25 14:46
Alkaline Phosphatase 272 U/L (38-126) H 02/17/25 14:46
Total Protein 7.6 g/dl (6.3-8.2) 02/17/25 14:46
Albumin 4.7 g/dl (3.5-5.0) 02/17/25 14:46
Physical Exam
-
General: well-appearing, sitting up in bed
Cardiopulm: non-labored breathing
Abdominal: non-tender, non-distended; clean laparoscopic incision sites with surgical glue, no drainage/purulence/erythema
Patient has a river catheter: No
Patient has a central line: No

Documented by User: Esequiel Garcia MD 02/19/25 10:57
Today's Communication / Plan
-
Plan:
- Stop Zosyn today
- Continue PRN analgesia (tylenol 650mg)
- Give 25 units lantus prior to discharge to address elevated glucose
- Diet: regular PO
- DVT ppx: continue heparin
- Dispo: to home EOD today, pending continues tolerating solids PO
I saw and examined the patient independently.
The resident's documentation was reviewed and I agree with the note, assessment and plan except where noted below.
Comment: POD 1 laparoscopic cholecystectomy with cholangiogram. Doing well, expected postoperative course.
25 units of Lantus given this morning to assist with glucose control.
Dispo Per primary, discharge instructions updated, prescription sent.
Esequiel Garcia MD.
[2025-02-19] MEDS: NOVOLOG FLEXPEN-LOW RESISTANCE 3 UNITS SC ×2 (08:18→13:00)
[2025-02-19] MEDS: CARDIZEM CD 240 MG PO (08:19)
[2025-02-19 08:34] LABS: ALT (SGPT) 121 U/L (0-35); AST (SGOT) 41 U/L (14-36); Albumin 4.3 g/dl (3.5-5.0); Alkaline Phosphatase 218 U/L (38-126); Blood Urea Nitrogen 27 mg/dl (7-17); Calcium 8.9 mg/dl (8.4-10.2); Carbon Dioxide 25 mmol/L (22-30); Chloride 98 mmol/L (98-107); Estimated Creatinine Clearance 51 ml/min; Glucose 243 mg/dl (70-99); Potassium 5.6 mmol/L (3.5-5.1); Sodium 130 mmol/L (135-145); Total Protein 6.8 g/dl (6.3-8.2); eGFR 45.07
[2025-02-19] MEDS: LANTUS 0.25 UNITS SC (09:35)
--- NOTE | 2025-02-19 11:00 | W.DCSUMMARY ---
Discharge Summary
Discharge Data
Date of Admission: 02/17/25
Date of Discharge: 02/19/25
-
Pending Results: No
Hospital Course
Patient is a 69 years old female with diabetes presented with few days of onset of nausea, vomiting, abdominal pain mostly at the right lower quadrant. Upon presentation patient remains afebrile and hemodynamically stable with no evidence of
sepsis. With further imaging and surgical evaluation patient was found to have acute cholecystitis. She underwent laparoscopic cholecystectomy on 02/18. Postoperative recovery has been uneventful. Diet has been advanced and insulin resumed.
Acute kidney injury secondary to volume loss with upper GI symptoms. Mild hypovolemic hyponatremia. Mild hyperkalemia. Diet has been resumed. Sodium level stable at 130 and creatinine 1.3. Patient advised to hold lisinopril for at least 1 week
and follow-up with BMP as outpatient.
Insulin requiring diabetes. Repeat hemoglobin A1c at 7. Patient will resume preadmission insulin regimen including Lantus. Patient given history of intolerance to SGLT 1 agonist. She advised to consult with virtual assistant and primary physician
prior to resuming Mounjaro.
Essential hypertension. History of palpitations. Patient will continue Cardizem at preadmission dose. Advised to hold lisinopril and follow with BMP. Possibly resume after once renal function stable.
Discharge Plan
-
Patient Disposition: Home (Routine Discharge)
Discharge Diagnosis/Procedures: Acute cholecystitis. Laparoscopic cholecystectomy.
Condition: Good
Diet: As tolerated and Diabetic, Carb Controlled
Activity: No strenuous activity
Bathing Restrictions: OK to Shower
Blood Work: BMP in one week
Activity Restrictions/Additional Instructions:
Instructions following Laparoscopic Cholecystectomy
Please call [phone] if you have any questions or concerns after your surgery.
Wound Care:
Your incisions are covered with skin glue which will come off on its own in 5-10 days.
It is ok to shower the day after your surgery. Do not scrub the incisions, let soap and water wash over them and pat dry.
� Bruising around your incisions is normal.
� Using ice packs will help minimize this swelling.
� No swimming or soaking incisions for 1 week.
� Your stitches will dissolve and do not need to be removed.
Urinary retention:
If you are unable to urinate 6-8 hours after your surgery, please call [phone] to discuss further management.
Activity:
No heavy lifting more than 15 pounds for the next 3 weeks, then you may gradually lift heavier objects as tolerated by discomfort. Otherwise activity as tolerated by your comfort level.
Pain Management:
Use Tylenol, ibuprofen and ice packs to treat your pain.
� You may take 650 milligrams of Tylenol (Max 3 grams per day) every 6 hours, and 600 mg of ibuprofen also every 6 hours. (you can alternate them every 3 hours)
� You may use an ice pack to your incision as needed.
� If you still have pain not controlled by these measures, take your prescription pain medication as prescribed.
Medications:
You may resume your home medications.
Bowel Medications:
Prescription pain medication can make you constipated. If you take this medication, also take colace 100 mg twice daily (this is over the counter). If this is not sufficient, you may take Miralax (polyethylene glycol) to help move your bowels.
Diet:
After your procedure, there are no dietary restrictions. However, you may notice some loose stools with fatty meals for up to 4 weeks after surgery. If this is the case, please adjust to a low fat diet as needed.
Driving restrictions:
No driving if you are taking prescription pain medication or if you think your normal reaction time and attentiveness has been slowed by your surgery.
Things to Look out for:
Worsening Abdominal pain, fever, jaundice, redness or drainage from incision
Call Doctor for:
Please call if you notice worsening redness or drainage from incision(s) lasting longer than 5 days after your surgery, any foul-smelling drainage from the incision, pain not controlled by pain medications, persistent nausea and vomiting, or for any
fevers greater than 101.3 F. The number for questions/concerns is [phone]
Follow-up:
A follow-up appointment will be scheduled with your surgeon in 3-4 weeks. Please call prior to your appointment if you have any questions or concerns. [phone]
Referrals:
Guillermo Boyd PA-C [Family Provider]
Esequiel Garcia MD [Active, Surgical] - in two to four weeks
Additional Discharge Medication Instructions: Hold lisinopril and Mounjaro
Prescriptions:
New
acetaminophen 325 mg tablet
650 mg PO Q6HPRN PRN (Reason: mild pain) Qty: 14 0RF
tramadol 50 mg tablet
25 mg PO Q6HPRN PRN (Reason: severe pain/breakthrough pain) Qty: 8 0RF
Continued
atorvastatin 10 mg tablet
10 mg PO QPM
omeprazole 40 mg capsule,delayed release(DR/EC)
40 mg PO QPM
diltiazem HCl 120 mg capsule,extended release 24hr
240 mg PO DAILY
albuterol sulfate 90 mcg/actuation HFA aerosol inhaler
1 puff INHALATION R Q4HPRN PRN (Reason: sob/wheezing)
sertraline 50 mg tablet
50 mg PO QPM
insulin glargine [Lantus Solostar U-100 Insulin] 100 unit/mL (3 mL) insulin pen
50 unit SC HS
cetirizine [Zyrtec] 10 mg Tablet
10 mg PO QPM
ascorbic acid (vitamin C) [Vitamin C] 500 mg Tablet
500 mg PO BID
diltiazem HCl 120 mg capsule,extended release 24hr
120 mg PO QPM
Azo Cranberry 250 mg Tablet,Chewable
250 mg PO DAILY
Held
lisinopril 40 mg tablet
40 mg PO DAILY
Hold Instructions: Resume on 02/26/25.
Discontinued
Mounjaro 5 mg/0.5 mL pen injector
7.5 mg SC QUIGLEY
Discharge Orders:
Discharge Patient (As Directed); Ordered 02/19/25
Ordered By: Pietro Goss
Discharge Date and Time
Print Language: PAKISTANI
--- NOTE | 2025-02-19 11:10 | CM ---
Reviewed the chart notes and spoke with the patient at the bedside. Patient s/p sasha harris. The patient resides with spouse who has Alzheimer's in a two story home with two steps to enter. The patient reports no DME/VN/SNF in the past. The
patient confirmed her [facility] choice [facility]. CM continues to be available to patient/family and is monitoring medical plan for needs at discharge.
Plan: Discharge to home when medically stable. Patient's daughter will provide transportation.
[2025-02-19 11:21] LABS: Glucose - Point of Care 253 mg/dl (70-99)
[2025-02-19 11:45] VITALS: BP 146/70
--- NOTE | 2025-02-22 10:59 | OR.RPT ---
Operative Report
Operative Report
Patient Name: Maxine Gongora
: 1955
Date of Operation: 02/18/2025
Preoperative Diagnosis: Acute cholecystitis
Postoperative Diagnosis: Same
Procedure(s):
Laparoscopic Cholecystectomy with Cholangiogram
Surgeon(s):
Dr. Garcia
Shellfish Sorter(s):
Anesthesia: General
Estimated Blood Loss: 11 cc
Urine Output: None
Drains/Lines/Implants: [None]
Specimens:
1. Gallbladder and contents
HPI/Surgical Indications:
This is a 69-year-old female who presents with 1 day of postprandial right upper quadrant abdominal pain. Exam, labs and imaging are consistent with early acute cholecystitis. Risks/Benefits/Alternatives were discussed at length, and the patient
agreed to proceed with surgery.
Operative Findings: Distended but fairly normal-appearing gallbladder, some mild inflammation noted in the cystic triangle. Critical view of safety obtained prior to a cholangiogram which demonstrated no distal filling defects and normal biliary
anatomy. Duct and artery ligated with 5 mm titanium clips.
Procedure Description:
The patient was brought to the Operating Room and placed in the supine position with one arm tucked. Following uneventful induction of general endotracheal anesthesia, an orogastric tube was placed. The abdomen was prepped and draped in the usual
sterile fashion. A timeout was performed confirming the procedure, consent, and that IV antibiotics were infused and sequential compression devices were confirmed to be on. The abdomen was entered using a left subcostal Veress technique which
required a single pass followed by a 5 mm right upper quadrant Optiview trocar. Pneumoperitoneum to 15 mmHg pressure was obtained without difficulty and we confirmed that no injury had occurred during our entry. The patient was positioned in
reverse Trendelenberg and rotated with the right side up slightly. Two 5 mm trocars were then placed along the right subcostal margin, followed by a 12 mm port in the epigastrium. A locking grasping forceps was placed on the fundus of the
gallbladder where it was then retracted cephalad and to the right. Using appropriate grasping instruments, the peritoneum overlying the triangle of Calot was incised and extended superiorly on both the anterior and posterior gallbladder williamson. The
infundibulum was dissected off the cystic plate. The cystic triangle was dissected until a critical view of safety was achieved. The cystic artery was medialized, dissected and controlled with 2 proximal clips and 1 distal. The cystic
duct/gallbladder junction in turn was identified, dissected circumferentially and a clip was placed. A ductotomy was made and a cholangiocatheter on an Paris clamp was inserted into the cystic duct. A C-arm was draped and brought into the field. An
intra-operative cholangiogram was performed and was noted to have:
No filling defects in the biliary tree
No significant biliary dilation
Brisk flow of contrast into the duodenum
Normal biliary anatomy
The catheter was then removed and the cystic duct was controlled with two clips. After ensuring both the artery and duct were divided, the gallbladder was freed from the liver using electrocautery. There was some spillage of bile from our
ductotomy, but no spillage of stones. The gallbladder bed was inspected and excellent hemostasis was obtained. The gallbladder was extracted through the 12 mm trocar site using an endocatch bag. The abdomen was again irrigated and excellent
hemostasis was assured. All remaining trocars were then removed and the pneumoperitoneum was evacuated. The 12 mm trocar site was closed using 0 PDS suture. All trocar sites were closed at the skin level using 4-0 Monocryl followed by Dermabond.
Overall, the patient tolerated the procedure well and was taken to the Recovery Room postoperatively in stable condition.
I was the attending physician and performed the procedure with no assistance. I was present for all portions of the case
Esequiel Garcia MD
== END 2025-02-19 15:50 | disposition home or self-care (01) ==
LOC: SDS 22:25
PROVIDERS: Emergency Medicine; Internal Medicine; CONSULT PHYSICIAN Surgery; EMERGENCY PHYSICIAN Emergency Medicine; FAMILY PHYSICIAN Physician Assistant Medical
DX: K80.10 Calculus of gallbladder with chronic cholecystitis without obstruction (principal)
CPT/HCPCS: 47563; 74176; 74300; 76000; 76700; 80048; 80053; 81003; 81015; 82962; 83036; 83690; 83735; 85025; 85027; 88304; 96365; 99285; A4300

== ENCOUNTER → 2025-03-07 06:48 | Outpatient (REF) | payer OTHER, SELFPAY | LOC: HWRAD 06:48 | PROVIDERS: ATTENDING PHYSICIAN Physician Assistant; FAMILY PHYSICIAN Physician Assistant Medical | DX: E04.2 Nontoxic multinodular goiter (principal) | CPT/HCPCS: 76536 ==

== ENCOUNTER 2025-03-31 11:18 | Emergency (ER) | payer OTHER, SELFPAY ==
[2025-03-31 11:22] VITALS: BP 131/80
--- NOTE | 2025-03-31 12:42 | ED.GENMED ---
History of Present Illness
General
Chief Complaint: Abdominal Symptoms
Source: patient
Exam Limitations: none
Time Seen by Provider: 03/31/25 12:21
Nursing documentation reviewed up to this point in time: agreed with
History of Present Illness
History of Present Illness:
69-year-old female past medical history of hypertension, diabetes presenting to the emergency department today with concerns of persistent vomiting over the past 36 hours or so. Denies any significant abdominal pain has been very nauseous ongoing
vomiting throughout the duration since onset. Has been treated for UTI 2 times in the last 2 weeks currently on Bactrim previously on Macrobid. Did have a cholecystectomy on February 19, 6 weeks ago. Denies any diarrhea no fevers.
Past History
Past History
ED Past Medical History: Asthma (with allergies), HTN, NIDDM and Other (UTI, Splenic aneurysm that they just watch. )
ED Past Surgical History: Gynecological (Total Hysterectomy) and Tonsilectomy (and adenoids)
Social History
Tobacco: Non-smoker
Alcohol: None
Drug: None
Personal:
Living: with family
Review of Systems
Review of Systems
Allergies reviewed?: Yes
All Other Systems: ROS reviewed and negative except as documented in HPI and ROS
Phy Exam
Physical Exam
Physical Exam:
GENERAL: Alert , in no apparent distress
EYE: pupils equal and reactive
NECK: Supple, no significant adenopathy.
ENT: o/p clr, mmm.
CARDIAC: Regular rate and rhythm .
LUNGS: Clear breath sounds bilaterally, no acute respiratory distress, no wheezes/rales/rhonchi
ABDOMEN: Soft, without focal tenderness, no r/g, no cvat
NEUROLOGICAL: Alert and oriented, no focal neuro deficits
SKIN: Warm and dry, skin intact.
MUSCULOSKELETAL: No edema, well perfused.
PSYCH: Normal and appropriate interaction.
Course
Orders/Labs/Results
Orders:
Orders
03/31/25 12:37
0.9% Sodium Chloride 1000 ml [Nss] 1,000 ml IV BOLUS
Ondansetron Injectable [Zofran] 4 mg IV NOW STA
03/31/25 12:47
Complete Blood Count/With Diff Urgent
Comprehensive Metabolic Panel Urgent
Lipase Urgent
Urinalysis Reflex To Culture Urgent
Date Specimen was Collected: 03/31/25
Time Specimen was Collected: 12:42
Urine Microscopic Reflex Cult Urgent
03/31/25 15:14
Metoclopramide [Reglan] 10 mg IV NOW STA
Abnormal Lab Results
03/31/25 03/31/25
12:47 15:22
WBC 11.3 H 10^3/uL
(4.8-10.8)
Hct 35.6 L %
(37.0-47.0)
Abs Immat Gran (auto) 0.1 H 10^3/uL
(0-0.05)
Absolute Neuts (auto) 9.8 H 10^3/uL
(1.4-6.5)
Absolute Lymphs (auto) 0.9 L 10^3/uL
(1.2-3.4)
Immature Gran % 1.0 H %
(0-0.5)
Neutrophils % 86.2 H %
(42.2-75.2)
Lymphocytes % 7.6 L %
(20.5-51.1)
Sodium 126 L mmol/L
(135-145)
Chloride 91 L mmol/L
(98-107)
Glucose 242 H mg/dl
(70-99)
Alkaline Phosphatase 129 H U/L
(38-126)
Urine Bacteria (Reflex) Few A
(Negative)
Urine Albumin (Reflex) 1+ A
(Neg - Trace)
POC Glucose 196 H mg/dl
(70-99)
03/31/25 12:47
03/31/25 12:47
Vital Signs
Initial and Last Documented VS:
Initial Vital Signs
Temp Pulse Resp BP Pulse Ox
97.8 F 68 16 131/80 98
03/31/25 11:22 03/31/25 11:22 03/31/25 11:22 03/31/25 11:22 03/31/25 11:22
Last Documented Vital Signs
Temp Pulse Resp BP Pulse Ox
97.8 F 67 16 134/60 94
03/31/25 11:22 03/31/25 14:27 03/31/25 11:22 03/31/25 14:27 03/31/25 14:27
MDM/Problems Addressed
MDM/Problems Addressed:
69-year-old female presenting to the emergency department with concerns of persisting vomiting over the past 2 days. Recently restarted Mounjaro was off this for a few weeks when she had a cholecystectomy a month ago. Also currently taking Bactrim
for UTI. On arrival vital signs are normal. Patient no distress no abdominal pain to palpation. Labs showing hyponatremia of 126 corrected after glucose roughly 128-129. Was given a liter of fluids also given nausea medications and had
significant improvement in symptoms and was able to tolerate by mouth. Claims that symptoms are significantly improved. No ongoing abdominal pain. Stable for close outpatient follow-up. Return precautions given.
*Pulse Oximetry
SaO2: 98
Oxygen Mode of Delivery: Room air
Patient hypoxic: no (94)
*Critical Care Note
Total Time (30-74mins, 75-104mins- exclusive of procedures): Not Applicable
ED Attending Note
-
Portions of this chart may have been created with voice recognition software.� Occasional wrong word or��sound alike� substitutions may have occurred due to the inherent limitations of voice recognition software.
Discharge Plan
Departure
Patient Disposition: Home (Routine Discharge)
Date of Disposition: 03/31/25
Time of Disposition: 17:12
Patient with high blood pressure during this ER visit?: No
Condition: Good
Covid-19: Not Applicable
Discharge Problem:
Vomiting
Instructions: Nausea and Vomiting, Adult (DC)
Prescriptions:
New
metoclopramide HCl [Reglan] 10 mg tablet
10 mg PO Q6H PRN (Reason: nausea and vomiting) Qty: 7 0RF
No Action
atorvastatin 10 mg tablet
10 mg PO QPM
omeprazole 40 mg capsule,delayed release(DR/EC)
40 mg PO QPM
diltiazem HCl 120 mg capsule,extended release 24hr
240 mg PO DAILY
albuterol sulfate 90 mcg/actuation HFA aerosol inhaler
1 puff INHALATION R Q4HPRN PRN (Reason: sob/wheezing)
lisinopril 40 mg tablet
40 mg PO DAILY
sertraline 50 mg tablet
50 mg PO QPM
insulin glargine [Lantus Solostar U-100 Insulin] 100 unit/mL (3 mL) insulin pen
50 unit SC HS
cetirizine [Zyrtec] 10 mg Tablet
10 mg PO QPM
ascorbic acid (vitamin C) [Vitamin C] 500 mg Tablet
500 mg PO BID
diltiazem HCl 120 mg capsule,extended release 24hr
120 mg PO QPM
Azo Cranberry 250 mg Tablet,Chewable
250 mg PO DAILY
acetaminophen 325 mg tablet
650 mg PO Q6HPRN PRN (Reason: mild pain) Qty: 14 0RF
tramadol 50 mg tablet
25 mg PO Q6HPRN PRN (Reason: severe pain/breakthrough pain) Qty: 8 0RF
Referrals:
Guillermo Boyd PA-C [Family Provider]
Activity Restrictions/Additional Instructions:
You came to the emergency department today with concerns of nausea and vomiting. Here had a reassuring assessment. Please get repeated labs by primary care doctor in the next week or so and take the medications as prescribed. Return for any
worsening, new or concerning symptoms.
Interventions
Interventions:
*Risk Screen - Suicide Last Done: 03/31/25 11:24
*General Assessment Last Done: 03/31/25 14:24
*Neglect/Abuse Screening Last Done: 03/31/25 11:24
[facility] Assessment Last Done: 03/31/25 14:24
Discharge Date and Time
Print Language: COMORAN
[2025-03-31] MEDS: NSS 1000 IV (12:50)
[2025-03-31] MEDS: ZOFRAN 4 MG IV (12:50)
[2025-03-31 12:56] LABS: Hematocrit 35.6 % (37.0-47.0); Hemoglobin 12.1 g/dL (12.0-16.0); Mean Corp Hgb Conc. 34.0 g/dL (33.0-37.0); Mean Corpuscular Volume 81.1 fL (81.0-99.0); Nucleated Red Blood Cells % 0 %; Platelet Count 266 10^3/uL (130-400); Red Cell Dist. Width 13.7 % (11.5-14.5)
[2025-03-31 12:57] LABS: Urine Character Clear (Clear)
[2025-03-31 13:03] LABS: Urine Red Blood Cell 0-2 /HPF (0-2); Urine Squamous Cell >30 /LPF (Few); Urine White Cell 0-2 /HPF (0-5)
[2025-03-31 13:15] LABS: ALT (SGPT) 17 U/L (0-35); AST (SGOT) 21 U/L (14-36); Albumin 4.8 g/dl (3.5-5.0); Alkaline Phosphatase 129 U/L (38-126); Blood Urea Nitrogen 16 mg/dl (7-17); Calcium 9.7 mg/dl (8.4-10.2); Carbon Dioxide 25 mmol/L (22-30); Chloride 91 mmol/L (98-107); Glucose 242 mg/dl (70-99); Lipase 46 U/L (23-300); Potassium 4.8 mmol/L (3.5-5.1); Sodium 126 mmol/L (135-145); Total Protein 7.8 g/dl (6.3-8.2); eGFR > 60.00
[2025-03-31 14:27] VITALS: BP 134/60
[2025-03-31 15:24] LABS: Glucose - Point of Care 196 mg/dl (70-99)
[2025-03-31] MEDS: REGLAN 10 MG IV (15:29)
[2025-03-31 17:22] VITALS: BP 134/74
== END 2025-03-31 17:32 | disposition home or self-care (01) ==
LOC: EMR 11:18
PROVIDERS: Physician Assistant; EMERGENCY PHYSICIAN Emergency Medicine; FAMILY PHYSICIAN Physician Assistant Medical
DX: R11.2 Nausea with vomiting, unspecified (principal); I10 Essential (primary) hypertension; E11.9 Type 2 diabetes mellitus without complications; E87.1 Hypo-osmolality and hyponatremia; J45.909 Unspecified asthma, uncomplicated; Z90.710 Acquired absence of both cervix and uterus
CPT/HCPCS: 96374; 96375; 96361; 99284; 80053; 81003; 81015; 82962; 83690; 85025